=== PATIENT | female | born 1985 | race Caucasian/White ===

== ENCOUNTER 2021-04-04 17:07 | Emergency (ER) | payer OTHER, SELFPAY ==
--- NOTE | 2021-04-04 | ECG_ITS ---
Test Reason : CP Blood Pressure : / mmHG Vent. Rate : 079 BPM Atrial Rate : 079 BPM P-R Int : 138 ms QRS Dur : 076 ms QT Int : 398 ms P-R-T Axes : 072 061 049 degrees QTc Int : 456 ms Normal sinus rhythm RSR' or QR pattern in V1 suggests right ventricular conduction delay Otherwise normal ECG No previous ECGs available Referred By: Generic ED Physician Electronically Signed By:DARIN FERNANDEZ MD
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
[2021-04-04 17:28] VITALS: BP 122/87; PULSE 81; RESP 18; TEMP 37; O2SAT 99; BMI 23.1
[2021-04-04] MEDS: Ondansetron ODT 4 MG TAB.RAPDIS TRANSLINGU (17:37)
[2021-04-04 20:00] VITALS: BP 121/72; PULSE 76; RESP 18; TEMP 37.2; O2SAT 100
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
--- NOTE | 2021-04-04 21:17 | PC.NURSE ---
pt to radiology
[2021-04-04 21:56] VITALS: BP 132/74; PULSE 83; RESP 18; TEMP 37.1; O2SAT 100
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
[2021-04-04] MEDS: oxyCODONE HCl Immed Release 5 MG TABLET 10 MG PO (22:17)
--- NOTE | 2021-04-04 22:18 | PC.NURSE ---
pt medicated for pain per order
== END 2021-04-04 22:22 | disposition home or self-care (01) ==
PROVIDERS: Emergency Provider Internal Medicine
DX: Z04.1 Encounter for examination and observation following transport accident (principal)
CPT/HCPCS: 70450; 71046; 93005; 99284; 99285

== ENCOUNTER 2021-09-04 05:17 | Emergency (ER) | payer OTHER, SELFPAY ==
[2021-09-04 05:27] VITALS: BP 133/76; PULSE 103; RESP 16; TEMP 36.8; O2SAT 99; BMI 23.1
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
[2021-09-04] MEDS: Diphth,Pertus(ACell),Tet Adult 0.5 ML SYRINGE IM (05:40)
[2021-09-04] MEDS: Bacitracin Oint 0.9 GM PACKET 1 APPL TOPICAL (05:41)
[2021-09-04] MEDS: Ibuprofen 600 MG TABLET PO (05:41)
== END 2021-09-04 06:04 | disposition home or self-care (01) ==
PROVIDERS: Emergency Provider Emergency Medicine
DX: S61.411A Laceration without foreign body of right hand, initial encounter (principal); T23.162A Burn of first degree of back of left hand, initial encounter; T31.0 Burns involving less than 10% of body surface; X12.XXXA Contact with other hot fluids, initial encounter; Y93.89 Activity, other specified; Y92.030 Kitchen in apartment as the place of occurrence of the external cause; Y99.9 Unspecified external cause status
CPT/HCPCS: 90471; 90715; 99283; 99284

== ENCOUNTER 2022-04-04 17:09 | Emergency (ER) | payer OTHER, SELFPAY ==
--- NOTE | ~2022-04-04 | CT_ITS ---
EXAMINATION: CT ABDOMEN AND PELVIS WITH CONTRAST CLINICAL INFORMATION: Abdominal pain COMPARISON: None TECHNIQUE: Multidetector volumetric images were obtained from the superior aspect of the liver through the pubic symphysis following administration 85 mL of Omnipaque 350 intravenous contrast. Sagittal and coronal reformatted images were obtained on the technologist's workstation. Oral contrast: No This CT examination was performed using dose optimization techniques as appropriate, variously including the following: *Automated exposure control *Adjustment of mA and/or kV according to patient size (this includes techniques or standardized protocols for targeted exams where dose is matched to indication/reason for exam; i.e. extremities or head) *Use of iterative reconstruction technique DLP: 438 mGy-cm FINDINGS: LUNG BASES: The visualized lung bases are unremarkable. LIVER, GALLBLADDER, AND BILIARY TREE: The liver is normal in size, shape, and attenuation. No focal hepatic lesion or biliary ductal dilatation is present. The gallbladder is unremarkable with no evidence of radiopaque gallstones, gallbladder wall thickening, or obvious pericholecystic inflammatory changes. PANCREAS: Unremarkable. SPLEEN: Unremarkable. ADRENAL GLANDS: Unremarkable. KIDNEYS AND URETERS: The kidneys are normal in size, shape, and attenuation. No hydronephrosis, hydroureter, or calculi seen. No perinephric stranding. BLADDER: Unremarkable. GASTROINTESTINAL TRACT: No evidence of bowel obstruction or significant wall thickening. Moderate stool throughout the colon. The appendix is unremarkable. No free fluid or free air is seen. ABDOMINAL WALL: No significant hernia is appreciated. LYMPH NODES: Normal. VASCULAR: Unremarkable. PELVIC VISCERA: Unremarkable. OSSEOUS STRUCTURES: Unremarkable. CT/CT abdomen pelvis w IV con IMPRESSION: No acute findings identified in the abdomen/pelvis.
[2022-04-04 18:05] VITALS: BP 136/72; PULSE 73; RESP 20; TEMP 37.1; O2SAT 100; BMI 26.2
[2022-04-04 18:26] LABS: MANUAL DIFF FLAG NO
[2022-04-04 18:28] LABS: Basophils Absolute Auto 0.1 X10*3/uL (0.0-0.2); Basophils Percent Auto 0.5 % (0-2); Eosinophils Absolute Auto 0.2 X10*3/uL (0.0-0.4); Eosinophils Percent Auto 2.4 % (0-4); Hematocrit 33.6 % (37.0-47.0); Hemoglobin 11.5 g/dl (12.0-16.0); Imm Gran Abs Auto 0.03 X10*3/uL (0.00-0.03); Imm Gran Pct Auto 0.3 % (0.0-0.4); Lymphocytes Absolute Auto 2.5 X10*3/uL (1.2-4.9); Lymphocytes Percent Auto 26.6 % (20-40); Mean Corpuscular HGB Conc 34.2 g/dl (31.0-35.0); Mean Corpuscular Hemoglobin 33.5 pg (27.0-33.0); Mean Platelet Volume 9.5 fL (9.4-12.3); Monocytes Absolute Auto 0.6 X10*3/uL (0.1-1.2); Monocytes Percent Auto 6.6 % (2-11); Neutrophils Absolute Auto 6.1 x10*3/uL (2.0-8.3); Neutrophils Percent Auto 63.6 % (45-73); Platelet Count 201 X10*3/uL (160-400); Red Blood Count 3.43 X10*6/uL (4.20-5.50); Red Cell Distribution Width 12.8 % (11.0-16.0); White Blood Count 9.6 X10*3/uL (4.8-10.8)
[2022-04-04 18:30] LABS: Appearance Urine Clear; Color Urine Yellow; Glucose Urine UA Negative (Negative); Leukocyte Esterase Urine Negative (Negative); Nitrite Urine Negative (Negative); PH 6.5 (5.0-9.0); Urine Blood Negative (Negative); Urine Ketones Negative (Negative); Urine Protein Negative (Neg-Trace)
[2022-04-04 18:39] LABS: Urine Pregnancy NEGATIVE (NEGATIVE)
[2022-04-04 18:40] LABS: UPreg QC Valid YES
[2022-04-04 18:43] LABS: Anion Gap 16 (12-20); Blood Urea Nitrogen 14 mg/dL (9-16); Calcium 9.5 mg/dL (8.4-10.2); Carbon Dioxide 23 mmol/L (22-29); Chloride 102 mmol/L (96-108); Creatinine Clr Calc Pharmacy 92.1; Estimated Glomerular Filt Rate > 60; Glucose Random 74 mg/dL (60-115); Potassium 3.8 mmol/L (3.3-5.1); Sodium 137 mmol/L (135-145)
[2022-04-04 23:37] VITALS: BP 148/89; PULSE 73; RESP 16; TEMP 36.4; O2SAT 100
--- OUTSIDE RECORDS SUMMARY | 2022-04-05 00:52 | XMS_ITS | Continuity of Care Document ---
:1985 Author Organization [facility] Address [address] [place] [address]- Care Team Providers Name Role Phone Omkar Estrada DO Primary Care Physician [place] [facility] [place] 03[place]/[address] [address] [facility] Discharge Disposition: A-D/C Walkout Attending Physician: Not on Staff, Attending MD Admitting Physician: Not on Staff, Admitting MD Referring Physician: Not on Staff, Referring MD Allergies, Adverse Reactions, Alerts Substance Reaction Severity Status NKA Active Immunizations Given and Recorded Vaccine Date Status Refusal Reason pneumococcal 23-valent vaccine 05/07/14 Given Medications ferrous sulfate 325 mg oral enteric coated tablet 325 mg, 1, tablet, By Mouth, Daily, # 30 tablet, Refills 2, Tot. Refills 2, Maintenance, 07/22/17 3:57:57, Print Requisition Start Date: 07/22/17 Status: Orderedibuprofen 600 mg oral tablet 1 tablet = 600 mg, By Mouth, 4 times a day, PRN as needed for pain, # 20 tablet, 0 Refills, Maintenance, 07/19/15 19:07:53, Tablet Start Date: 07/19/15 Stop Date: 07/24/15 Status: OrderedPrenatal Multivitamin Tablet 0 Refills, Maintenance, 10/14/17 16:46:24 EDT Start Date: 10/14/17 Status: OrderedVitamin B6 Daily, 0 Refills, Maintenance, 10/14/17 16:46:31 EDT Start Date: 10/14/17 Status: Ordered Problem List Condition Effective Dates Status Health Status Informant Chlamydia(Confirmed) Active Vital Signs Most recent to oldest [Reference Range]: 1 2 Oxygen Saturation [94-100 %] 100 % 100 % (03/16/20 10:05 PM) (03/16/20 10:01 PM) Pulse Rate [55-90 bpm] 73 bpm 80 bpm (03/16/20 10:05 PM) (03/16/20 10:01 PM) Blood Pressure [90-138/55-84 mm Hg] 125/68 mm Hg (03/16/20 10:05 PM) Respiratory Rate [16-30 br/min] 18 br/min (03/16/20 10:05 PM) Temperature [96.8-100.4 DegF] 98.6 DegF (03/16/20 10:05 PM) Temperature Route Oral (03/16/20 10:05 PM) Social History Social History Type Response Smoking Status Never smoker; Tobacco user i n household: No entered on: 05/08/14 Sex
--- OUTSIDE RECORDS SUMMARY | 2022-04-05 00:52 | XMS_ITS | Continuity of Care Document ---
:1985 Author Organization [facility] ic Address [address] [place] [id number]- Care Team Providers Name Role Phone Omkar Estrada DO Primary Care Physician [place] [facility] [place]/01/[place] - 08/28/[address] [address]- [facility] Attending Physician: Not on Staff, Attending MD Referring Physician: Ct CERVANTES, Renee Allergies, Adverse Reactions, Alerts Substance Reaction Severity [...] Dates Status Health Status Informant Chlamydia(Confirmed) Active Social History Social History Type Response Smoking Status Never smoker; Tobacco user i n household: No entered on: 05/08/14 Sex
--- OUTSIDE RECORDS SUMMARY | 2022-04-05 00:52 | XMS_ITS | Continuity of Care Document ---
:1985 Author Organization [facility] Address [address] [place] [address]- Care Team Providers Name Role Phone Omkar Estrada DO Primary Care Physician Encounter [facility] Date(s): 06/27/19 - 08/01/[address] [address]- [facility] [phone] Attending Physician: Rock Ammon Deutsch DO Admitting Physician: Rock Ammon Deutsch DO Referring Physician: Gemma Brown Referring Physician: Rock Ammon Deutsch DO Allergies, Adverse Reactions, Alerts Substance Reaction Severity [...]
--- OUTSIDE RECORDS SUMMARY | 2022-04-05 00:52 | XMS_ITS | Continuity of Care Document ---
:1985 Author Organization [facility] ic Address [address] [place] [id number]- Care Team Providers Name Role Phone Omkar Estrada DO Primary Care Physician Encounter [facility] [place] Date(s): 07/29/19 - 08/08/[address] [address]- [facility] Attending Physician: Kevan Lora Admitting Physician: Kevan Lora Referring Physician: AdmtrKevan Allergies, Adverse Reactions, Alerts Substance Reaction Severity [...]
--- NOTE | 2022-04-05 01:02 | ED_ITS ---
HPI - Abdominal Pain General Chief Complaint: Abdominal Pain Stated Complaint: Abdominal pain Time Seen by Provider: 04/05/22 00:36 History of Present Illness HPI narrative: Patient is a 36-year-old female presents today with having lower abdominal pain. Patient unsure of her last menstrual period. Had a test that was a pea. Patient denies any change in diet. There is no change in appetite. There is slight nausea. There is no abdominal surgeries. No change in bowel m ovement. No abnormal vaginal discharge. No coughing or congestion or upper respiratory symptoms. Patient is from home. No history of pain related to food. She has been 4 times with 3 babies. One miscarriage. Related Data Previous Rx's Medication Instructions Recorded cyclobenzaprine 10 mg tablet 10 mg PO Q8H #20 tabs 04/04/21 ibuprofen 600 mg tablet 600 mg PO Q6H PRN pain #20 tabs 04/04/21 bacitracin 500 unit/gram topical 1 appl topical TID #20 ea 09/04/21 packet ibuprofen 600 mg tablet 600 mg PO Q6H PRN pain #14 tabs 09/04/21 Allergies Allergy/AdvReac Type Severity Reaction Status Date / Time No Known Allergies Allergy Verified 04/04/21 17:28 [No Known Allergies*] Review of Systems Review of Systems Positive abdominal pain Yes all other systems are reviewed and are negative PMFSH Past Medical History Attestation statement: The following information was validated with the patient. Social History Social History Alcohol intake: current Alcohol intake frequency: holidays/special occasions only Patient Tobacco Use Status: Former Tobacco user Advance Directives: No Physical Exam ED Vital Signs: Vital Signs - 24 hr 04/04/22 18:05 04/04/22 23:37 04/05/22 02:09 Temperature 98.8 F 97.5 F Pulse Rate 73 73 62 Respiratory Rate 20 16 18 Blood Pressure 136/72 148/89 H 127/71 Pulse Oximetry 100 100 97 Oxygen Delivery Method Room Air Room Air Room Air BMI result Body Mass Index 26.2 Appearance: Alert. Oriented X3. No acute distress. Eyes: Pupils equal, round and reactive to light. ENT: Pharynx normal. Neck: Normal inspection. Neck supple. No lymph nodes noted. No crepitus CVS: Normal heart rate and rhythm. Pulses normal. Normal S1 and S2 Respiratory: No respiratory distress. Breath sounds normal. No Wheezing. No rales Abdomen: Soft and nontender. No rigidity. No distention. good BS x4 Skin: Skin warm and dry. Normal skin color. Normal skin turgor. Extremities: No lower extremity edema. Neurovascular intact to all extremities. No Lacerations. No Rash Neuro: Oriented X 3. No motor deficit. No sensory deficit. Moving all extermities. No slurred speech MDM - Abdominal Pain MDM Narrative Medical decision making narrative: CT scan of the abdomen pelvis all negative. No evidence for appendicitis. test is negative. No evidence for ectopic. Electrolytes are unremarkable. White count is normal. Urine showed no signs of infection. No vaginal discharge. Will discharge patient home Motrin for pain follow up on an outpatient basis. In stable condition. Medical Records Attestation: I reviewed the patient's medical records. Lab Data Result diagrams: 04/04/22 18:20 04/04/22 18:20 Labs: Lab Results 04/04/22 04/04/22 04/04/22 Range/Units 18:20 18:20 18:20 WBC 9.6 (4.8-10.8) X10*3/uL RBC 3.43 L (4.20-5.50) X10*6/uL Hgb 11.5 L (12.0-16.0) g/dl Hct 33.6 L (37.0-47.0) % MCV 98.0 (80.0-98.0) fL MCH 33.5 H (27.0-33.0) pg MCHC 34.2 (31.0-35.0) g/dl RDW 12.8 (11.0-16.0) % Plt Count 201 (160-400) X10*3/uL MPV 9.5 (9.4-12.3) fL Immature Gran % (Auto) 0.3 (0.0-0.4) % Neut % (Auto) 63.6 (45-73) % Lymph % (Auto) 26.6 (20-40) % [place] % (Auto) 6.6 (2-11) % Eos % (Auto) 2.4 (0-4) % Baso % (Auto) 0.5 (0-2) % Lymph # (Auto) 2.5 (1.2-4.9) X10*3/uL [place] # (Auto) 0.6 (0.1-1.2) X10*3/uL Eos # (Auto) 0.2 (0.0-0.4) X10*3/uL Baso # (Auto) 0.1 (0.0-0.2) X10*3/uL Abs Immat Gran (auto) 0.03 (0.00-0.03) X10*3/uL Absolute Neuts (auto) 6.1 (2.0-8.3) x10*3/uL Absolute Nucleated RBC 0.000 (0.0-0.012) X10*3/uL Nucleated RBC % (auto) 0.0 (0.0-0.2) /100WBC Sodium 137 (135-145) mmol/L Potassium 3.8 (3.3-5.1) mmol/L Chloride 102 (96-108) mmol/L Carbon Dioxide 23 (22-29) mmol/L Anion Gap 16 (12-20) BUN 14 (9-16) mg/dL Creatinine 0.80 (0.5-1.4) mg/dL Estim Creat Clear Calc 92.1 Estimated GFR > 60 Random Glucose 74 (60-115) mg/dL Calcium 9.5 (8.4-10.2) mg/dL Urine Color Yellow Urine Appearance Clear Urine pH 6.5 (5.0-9.0) Ur Specific [place] 1.020 (1.005-1.025) Urine Protein Negative (Neg-Trace) mg/dL Urine Glucose (UA) Negative (Negative) mg/dL Urine Ketones Negative (Negative) mg/dL Urine Blood Negative (Negative) Urine Nitrite Negative (Negative) Ur Leukocyte Esterase Negative (Negative) Urine Test (NEGATIVE) 04/04/22 Range/Units 18:20 WBC (4.8-10.8) X10*3/uL RBC (4.20-5.50) X10*6/uL Hgb (12.0-16.0) g/dl Hct (37.0-47.0) % MCV (80.0-98.0) fL MCH (27.0-33.0) pg MCHC (31.0-35.0) g/dl RDW (11.0-16.0) % Plt Count (160-400) X10*3/uL MPV (9.4-12.3) fL Immature Gran % (Auto) (0.0-0.4) % Neut % (Auto) (45-73) % Lymph % (Auto) (20-40) % [place] % (Auto) (2-11) % Eos % (Auto) (0-4) % Baso % (Auto) (0-2) % Lymph # (Auto) (1.2-4.9) X10*3/uL [place] # (Auto) (0.1-1.2) X10*3/uL Eos # (Auto) (0.0-0.4) X10*3/uL Baso # (Auto) (0.0-0.2) X10*3/uL Abs Immat Gran (auto) (0.00-0.03) X10*3/uL Absolute Neuts (auto) (2.0-8.3) x10*3/uL Absolute Nucleated RBC (0.0-0.012) X10*3/uL Nucleated RBC % (auto) (0.0-0.2) /100WBC Sodium (135-145) mmol/L Potassium (3.3-5.1) mmol/L Chloride (96-108) mmol/L Carbon Dioxide (22-29) mmol/L Anion Gap (12-20) BUN (9-16) mg/dL Creatinine (0.5-1.4) mg/dL Estim Creat Clear Calc Estimated GFR Random Glucose (60-115) mg/dL Calcium (8.4-10.2) mg/dL Urine Color Urine Appearance Urine pH (5.0-9.0) Ur Specific [place] (1.005-1.025) Urine Protein (Neg-Trace) mg/dL Urine Glucose (UA) (Negative) mg/dL Urine Ketones (Negative) mg/dL Urine Blood (Negative) Urine Nitrite (Negative) Ur Leukocyte Esterase (Negative) Urine Test NEGATIVE (NEGATIVE) Discharge Plan Discharge Clinical Impression: Abdominal pain Patient Disposition: Home, Self-Care Instructions: Abdominal Pain (ED) Additional Instructions: Follow-up with your doctor in 2 days. Worsened pain return to the emergency department. Prescriptions: No Action cyclobenzaprine 10 mg tablet 10 mg PO Q8H Qty: 20 0RF ibuprofen 600 mg tablet 600 mg PO Q6H PRN (Reason: pain) Qty: 20 0RF ibuprofen 600 mg tablet 600 mg PO Q6H PRN (Reason: pain) Qty: 14 0RF bacitracin 500 unit/gram packet 1 appl topical TID Qty: 20 0RF Referrals: Physician,Unknown J [Primary Care Provider] - (Follow-up with your doctor in 2 days. Worsened pain return.)
[2022-04-05] MEDS: iohexoL 350 MG/ML 100 ML INFUS..BTL IV (01:51)
[2022-04-05 02:09] VITALS: BP 127/71; PULSE 62; RESP 18; O2SAT 97
== END 2022-04-05 03:06 | disposition home or self-care (01) ==
PROVIDERS: Emergency Provider Emergency Medicine Emergency Medical Services
DX: R10.2 Pelvic and perineal pain (principal); Z79.899 Other long term (current) drug therapy
CPT/HCPCS: 36415; 74177; 80048; 81003; 81025; 85025; 99212; 99283; 99284; Q9967

== ENCOUNTER 2022-04-05 16:46 | Outpatient (REF) | payer OTHER, SELFPAY ==
[2022-04-05 17:45] LABS: HCG Quantitative < 2 mIU/mL
== END 2022-04-05 16:47 | disposition home or self-care (01) ==
LOC: HO.LAB 16:46
PROVIDERS: Visit Provider Advanced Practice Midwife
DX: Z32.02 Encounter for pregnancy test, result negative (principal); N64.4 Mastodynia
CPT/HCPCS: 36415; 84702

== ENCOUNTER 2022-06-22 20:31 | Emergency (ER) | payer OTHER, SELFPAY ==
--- NOTE | ~2022-06-22 | US_ITS ---
EXAMINATION: US OBSTETRICAL ULTRASOUND CLINICAL INFORMATION: Pelvic pain. COMPARISON: None. LMP: 05/07/2022. Gestational age by maternal dates is 6 weeks and 4 days. Estimated date of delivery by maternal dates is 02/11/2023. TECHNIQUE: Ultrasound of the maternal pelvis is performed using transabdominal and transvaginal transducers. Transvaginal imaging is performed due to inadequate visualization transabdominally. M-mode Doppler is also performed. FINDINGS: There is a single intrauterine gestational sac, without visible yolk sac, embryo/fetus, or cardiac activity. There is a subchorionic hemorrhage measuring 1.4 x 0.8 x 0.6 cm. Mean sac diameter: 0.76 cm (5 weeks and 3 days +/- 4 days). MATERNAL ADNEXA: The right maternal ovary measures 3.3 x 1.7 x 1.7 cm. The left maternal ovary measures 3.3 x 2.8 x 2.7 cm. The left ovary contains a 2.0 cm in maximal diameter physiologic, simple cyst. There is no significant maternal adnexal mass. No maternal pelvic ascites. US/US OB pelvic and transvaginal IMPRESSION: 1. Single intrauterine gestational sac, ultrasound gestational age of 5 weeks and 3 days +/- 4 days. Recommend short-term follow-up ultrasound for pole measurements and more accurate dating. 2. A small subchorionic hemorrhage is noted, as detailed. 3. No maternal adnexal mass or pelvic ascites.
[2022-06-22 20:40] VITALS: BP 128/65; PULSE 78; RESP 18; TEMP 36.6; O2SAT 100; BMI 26.6
--- NOTE | 2022-06-22 20:43 | ED.ABDPAIN ---
HPI - Abdominal Pain General Chief Complaint: Abdominal Pain <CHASITY Robb - Last Filed: 06/22/22 20:46> Stated Complaint: 6 weeks preg; abd pain <CHASITY Robb - Last Filed: 06/22/22 20:46> Time Seen by Provider: 06/22/22 21:55 <CHASITY Robb - Last Filed: 06/22/22 20:46> Source: patient, family and it risk and assurance senior manager <Valeriy Toussaint MD - Last Filed: 06/22/22 23:18> Mode of arrival: ambulatory <Valeriy Toussaint MD - Last Filed: 06/22/22 23:18> Limitations: no limitations <Valeriy Toussaint MD - Last Filed: 06/22/22 23:18> History of Present Illness HPI narrative: 36-year-old female currently LMP is 05/07 about 6 weeks by date, presented for evaluation of lower abdominal cramps for 1 day, declined any vaginal bleed or discharge, no nausea, no vomiting, no abdominal pain. No pelvic trauma. No history of STD or PID. <Valeriy Toussaint MD - Last Filed: 06/22/22 23:18> Related Data Home Medications: Home Medications Medication Instructions Recorded Confirmed [id number] 3-fat com #1 27 cap PO 04/05/22 04/05/22 mg-1 mg-300 mg capsule folic acid 800 mcg tablet 0.8 mg PO DAILY 04/05/22 04/05/22 <CHASITY Robb - Last Filed: 06/22/22 20:46> Allergies/Adverse Reactions: Allergies Allergy/AdvReac Type Severity Reaction Status Date / Time No Known Allergies Allergy Verified 06/22/22 20:45 [No Known Allergies*] <CHASITY Robb - Last Filed: 06/22/22 20:46> Review of Systems Review of Systems All other systems are reviewed and are negative Constitutional: Reports as per HPI and Reports no additional constitutional complaints Eyes: Reports as per HPI and Reports no additional eye complaints Reports system reviewed and no additional complaints, except as documented Cardiovascular: Reports as per HPI and Reports no additional cardiovascular complaints Respiratory: Reports as per HPI and Reports no additional respiratory complaints Gastrointestinal: Reports as per HPI and Reports no additional gastrointestinal complaints Genitourinary: Reports no additional female genitourinary complaints Musculoskeletal: Reports no additional musculoskeletal complaints Skin/Breast: Reports system reviewed and no additional complaints, except as docu Psychiatric: Reports no additional psychiatric complaints Endocrine: Reports no additional endocrine complaints Hematologic/Lymphatic: Reports no additional hematologic/lymphatic complaints Allergic/Immunologic: Reports no additional allergic/immunologic complaints Reports system reviewed and no additional complaints, except as documented and Reports Abnormal speech present <Valeriy Toussaint MD - Last Filed: 06/22/22 23:18> [facility] Social History Social History: Social History Alcohol intake: current Alcohol intake frequency: holidays/special occasions only Patient Tobacco Use Status: Former Tobacco user Advance Directives: No Advance Directives Information Provided: No <CHASITY Robb - Last Filed: 06/22/22 20:46> Physical Exam ED Vital Signs: Vital Signs - 24 hr 06/22/22 20:40 Temperature 98 F Pulse Rate 78 Respiratory Rate 18 Blood Pressure 128/65 Pulse Oximetry 100 Oxygen Delivery Method Room Air BMI result Body Mass Index 26.6 <CHASITY Robb - Last Filed: 06/22/22 20:46> Vital Signs - 24 hr 06/22/22 20:40 Temperature 98 F Pulse Rate 78 Respiratory Rate 18 Blood Pressure 128/65 Pulse Oximetry 100 Oxygen Delivery Method Room Air BMI result Body Mass Index 26.6 Vital signs have been reviewed as appeared to be correct. Blood pressure normal. Heart rate normal. Respiration rate normal. Temperature normal. Oxygen saturation normal. <Valeriy Toussaint MD - Last Filed: 06/22/22 23:18> Appearance: Alert. Oriented X3. No acute distress. Head: Normal external exam. Normocephalic. Atraumatic. No Wheeler signs noted. No raccoon eyes noted Eyes: PERRLA. EOMI. Conjunctiva and sclera normal. Eyelids normal. ENT: TM's Normal. Pharynx normal. Uvula midline. Moist mucous membranes. No trismus noted. No drooling noted. No muffled voice noted. Neck: Normal inspection. Neck supple. FROM. No adenopathy. Thyroid Normal. No meningeal signs. No neck mass noted. CVS: Normal heart rate and rhythm. Heart sound normal. No murmurs noted. Pulses normal throughout. Respiratory: No respiratory distress. Painless inspiration. Breath sounds normal. No wheezes/rales/rhonchi noted. Chest nontender. No accessory muscle usage noted or decreased air movement noted. Abdomen: Soft and nontender. Bowel sounds normal in all 4 quadrants. No distention noted. No organomegaly noted. No visible injury noted. Pelvic exam: Deferred for the ultrasound. Back: No CVA tenderness. Full range of motion noted. Skin: Skin warm and dry. Normal skin color. Normal skin turgor. No rashes/lesions/lacerations noted. Extremities: No lower extremity edema. Extremities exhibit normal range of motion. Extremities nontender. Neuro: Oriented X 3. Cranial nerve exam: II-XII are grossly intact No motor deficit. No sensory deficit. Reflexes normal. <Valeriy Toussaint MD - Last Filed: 06/22/22 23:18> Course Course Course Narrative: 20:43 - RME - 36 y/o who is currently 6 weeks LMP 05/07 presenting with strong lower abdominal/pelvic cramping that comes and goes. The pain takes her breath away at times. Did not have this pain with her other pregnancies. No vaginal bleeding or discharge. No fevers, N/V/D. Will check HCG, labs, and pelvic/OB U/S. <CHASITY Robb - Last Filed: 06/22/22 20:46> Reevaluation(s) Reevaluation #1: 36-year-old female 5 weeks and 3 days with pelvic cramps with unremarkable ultrasound/labs patient is O-positive blood type, currently no vaginal bleeding, patient was instructed to rest for the next 3 days and avoid any strenuous activity and avoid sexual intercourse and make an appointment with her desizing machine back tender for follow-up. <Valeriy Toussaint MD - Last Filed: 06/22/22 23:18> Time: 23:16 <Valeriy Toussaint MD - Last Filed: 06/22/22 23:18> Medical Decision Making Differential Diagnosis Differential Diagnoses: The differential diagnosis associated with the presentation includes (Early complication ectopic , threatened , abdominal cause for pain.) <Valeriy Toussaint MD - Last Filed: 06/22/22 23:18> Lab Data [facility] Lab Attestation statement: I reviewed the patient's lab results. <Valeriy Toussaint MD - Last Filed: 06/22/22 23:18> Result Diagrams: : 06/22/22 20:53 06/22/22 20:53 <CHASITY Robb - Last Filed: 06/22/22 20:46> Labs: Lab Results 06/22/22 06/22/22 06/22/22 Range/Units 20:53 20:53 20:53 WBC 8.2 (4.8-10.8) X10*3/uL RBC 3.23 L (4.20-5.50) X10*6/uL Hgb 10.5 L (12.0-16.0) g/dl Hct 31.3 L (37.0-47.0) % MCV 96.9 (80.0-98.0) fL MCH 32.5 (27.0-33.0) pg MCHC 33.5 (31.0-35.0) g/dl RDW 11.9 (11.0-16.0) % Plt Count 215 (160-400) X10*3/uL MPV 9.5 (9.4-12.3) fL Immature Gran % (Auto) 0.2 (0.0-0.4) % Neut % (Auto) 69.3 (45-73) % Lymph % (Auto) 21.5 (20-40) % [place] % (Auto) 7.7 (2-11) % Eos % (Auto) 1.1 (0-4) % Baso % (Auto) 0.2 (0-2) % Lymph # (Auto) 1.8 (1.2-4.9) X10*3/uL [place] # (Auto) 0.6 (0.1-1.2) X10*3/uL Eos # (Auto) 0.1 (0.0-0.4) X10*3/uL Baso # (Auto) 0.0 (0.0-0.2) X10*3/uL Abs Immat Gran (auto) 0.02 (0.00-0.03) X10*3/uL Absolute Neuts (auto) 5.7 (2.0-8.3) x10*3/uL Absolute Nucleated RBC 0.000 (0.0-0.012) X10*3/uL Nucleated RBC % (auto) 0.0 (0.0-0.2) /100WBC Sodium 140 (135-145) mmol/L Potassium 3.9 (3.3-5.1) mmol/L Chloride 109 H (96-108) mmol/L Carbon Dioxide 24 (22-29) mmol/L Anion Gap 11 L (12-20) BUN 11 (9-16) mg/dL Creatinine 0.87 (0.5-1.4) mg/dL Estim Creat Clear Calc 85.2 Estimated GFR > 60 Random Glucose 102 (60-115) mg/dL Calcium 9.4 (8.4-10.2) mg/dL Magnesium 1.9 (1.6-2.6) mg/dL Total Bilirubin 0.3 (0.0-1.0) mg/dL Direct Bilirubin < 0.2 (0.0-0.5) mg/dL AST 15 (5-31) U/L ALT 12 (0-31) U/L Alkaline Phosphatase 48 (39-117) U/L Total Protein 7.5 (6.5-8.0) g/dL Albumin 4.6 (3.5-5.0) g/dL Beta HCG, Quant 7563 mIU/mL Blood Type O Positive <CHASITY Robb - Last Filed: 06/22/22 20:46> Lab Results 06/22/22 06/22/22 06/22/22 Range/Units 20:53 20:53 20:53 WBC 8.2 (4.8-10.8) X10*3/uL RBC 3.23 L (4.20-5.50) X10*6/uL Hgb 10.5 L (12.0-16.0) g/dl Hct 31.3 L (37.0-47.0) % MCV 96.9 (80.0-98.0) fL MCH 32.5 (27.0-33.0) pg MCHC 33.5 (31.0-35.0) g/dl RDW 11.9 (11.0-16.0) % Plt Count 215 (160-400) X10*3/uL MPV 9.5 (9.4-12.3) fL Immature Gran % (Auto) 0.2 (0.0-0.4) % Neut % (Auto) 69.3 (45-73) % Lymph % (Auto) 21.5 (20-40) % [place] % (Auto) 7.7 (2-11) % Eos % (Auto) 1.1 (0-4) % Baso % (Auto) 0.2 (0-2) % Lymph # (Auto) 1.8 (1.2-4.9) X10*3/uL [place] # (Auto) 0.6 (0.1-1.2) X10*3/uL Eos # (Auto) 0.1 (0.0-0.4) X10*3/uL Baso # (Auto) 0.0 (0.0-0.2) X10*3/uL Abs Immat Gran (auto) 0.02 (0.00-0.03) X10*3/uL Absolute Neuts (auto) 5.7 (2.0-8.3) x10*3/uL Absolute Nucleated RBC 0.000 (0.0-0.012) X10*3/uL Nucleated RBC % (auto) 0.0 (0.0-0.2) /100WBC Sodium 140 (135-145) mmol/L Potassium 3.9 (3.3-5.1) mmol/L Chloride 109 H (96-108) mmol/L Carbon Dioxide 24 (22-29) mmol/L Anion Gap 11 L (12-20) BUN 11 (9-16) mg/dL Creatinine 0.87 (0.5-1.4) mg/dL Estim Creat Clear Calc 85.2 Estimated GFR > 60 Random Glucose 102 (60-115) mg/dL Calcium 9.4 (8.4-10.2) mg/dL Magnesium 1.9 (1.6-2.6) mg/dL Total Bilirubin 0.3 (0.0-1.0) mg/dL Direct Bilirubin < 0.2 (0.0-0.5) mg/dL AST 15 (5-31) U/L ALT 12 (0-31) U/L Alkaline Phosphatase 48 (39-117) U/L Total Protein 7.5 (6.5-8.0) g/dL Albumin 4.6 (3.5-5.0) g/dL Beta HCG, Quant 7563 mIU/mL Blood Type O Positive <Valeriy Toussaint MD - Last Filed: 06/22/22 23:18> Independent Interpretation I performed an independent interpretation of an: Ultrasound (Pelvic ultrasound limited Ob: No acute pathology.) <Valeriy Toussaint MD - Last Filed: 06/22/22 23:18> Radiology Impression Discussion of test interpretation with radiology: I have reviewed the radiologist's reading. <Valeriy Toussaint MD - Last Filed: 06/22/22 23:18> Discharge Plan Discharge Clinical Impression: , threatened <CHASITY Robb - Last Filed: 06/22/22 20:46> Patient Disposition: Home, Self-Care <CHASITY Robb - Last Filed: 06/22/22 20:46> Instructions: Threatened Miscarriage (ED) <CHASITY Robb - Last Filed: 06/22/22 20:46> Additional Instructions: Follow-up with your OBGYN for care. <CHASITY Robb - Last Filed: 06/22/22 20:46> Prescriptions: No Action folic acid 800 mcg tablet 0.8 mg PO DAILY CYT-[id number]-PG-omega 3-fat com #1 27-1-300 mg capsule PO <CHASITY Robb - Last Filed: 06/22/22 20:46> Referrals: Physician,Unknown J [Primary Care Provider] - <CHASITY Robb - Last Filed: 06/22/22 20:46>
[2022-06-22 20:58] LABS: MANUAL DIFF FLAG NO
[2022-06-22 21:03] LABS: Basophils Percent Auto 0.2 % (0-2); Eosinophils Absolute Auto 0.1 X10*3/uL (0.0-0.4); Eosinophils Percent Auto 1.1 % (0-4); Hematocrit 31.3 % (37.0-47.0); Hemoglobin 10.5 g/dl (12.0-16.0); Imm Gran Abs Auto 0.02 X10*3/uL (0.00-0.03); Imm Gran Pct Auto 0.2 % (0.0-0.4); Lymphocytes Absolute Auto 1.8 X10*3/uL (1.2-4.9); Lymphocytes Percent Auto 21.5 % (20-40); Mean Corpuscular HGB Conc 33.5 g/dl (31.0-35.0); Mean Corpuscular Hemoglobin 32.5 pg (27.0-33.0); Mean Corpuscular Volume 96.9 fL (80.0-98.0); Mean Platelet Volume 9.5 fL (9.4-12.3); Monocytes Absolute Auto 0.6 X10*3/uL (0.1-1.2); Monocytes Percent Auto 7.7 % (2-11); Neutrophils Absolute Auto 5.7 x10*3/uL (2.0-8.3); Neutrophils Percent Auto 69.3 % (45-73); Platelet Count 215 X10*3/uL (160-400); Red Blood Count 3.23 X10*6/uL (4.20-5.50); Red Cell Distribution Width 11.9 % (11.0-16.0); White Blood Count 8.2 X10*3/uL (4.8-10.8)
[2022-06-22 21:16] LABS: Alanine Aminotransferase 12 U/L (0-31); Albumin Level 4.6 g/dL (3.5-5.0); Alkaline Phosphatase 48 U/L (39-117); Anion Gap 11 (12-20); Aspartate Amino Transferase 15 U/L (5-31); Bilirubin Direct < 0.2 mg/dL (0.0-0.5); Bilirubin Total 0.3 mg/dL (0.0-1.0); Blood Urea Nitrogen 11 mg/dL (9-16); Calcium 9.4 mg/dL (8.4-10.2); Carbon Dioxide 24 mmol/L (22-29); Chloride 109 mmol/L (96-108); Creatinine Clr Calc Pharmacy 85.2; Estimated Glomerular Filt Rate > 60; Glucose Random 102 mg/dL (60-115); Magnesium 1.9 mg/dL (1.6-2.6); Potassium 3.9 mmol/L (3.3-5.1); Sodium 140 mmol/L (135-145); Total Protein 7.5 g/dL (6.5-8.0)
[2022-06-22 21:22] LABS: HCG Quantitative 7563 mIU/mL
== END 2022-06-22 23:31 | disposition home or self-care (01) ==
PROVIDERS: Physician Assistant; Emergency Provider Emergency Medicine
DX: O20.0 Threatened abortion (principal); Z3A.01 Less than 8 weeks gestation of pregnancy; Z79.899 Other long term (current) drug therapy
CPT/HCPCS: 36415; 76801; 76817; 80048; 80076; 83735; 84702; 85025; 86900; 86901; 99282; 99284

== ENCOUNTER 2022-07-02 14:56 | Emergency (ER) | payer OTHER, SELFPAY ==
--- NOTE | ~2022-07-02 | US_ITS ---
EXAMINATION: US OBSTETRICAL ULTRASOUND CLINICAL INFORMATION: Vaginal bleeding/fragment COMPARISON: None. LMP: 05/07/2022 Gestational age by maternal dates is 8 weeks 0 days. Estimated date of delivery by maternal dates is 02/11/2023. TECHNIQUE: Routine grayscale imaging of pelvis is performed. FINDINGS: There is a single intrauterine gestational sac with visible yolk sac, embryo/fetus, and cardiac activity. The gestational sac appears slightly larger with average ultrasound sac measurement of 2.67 cm corresponding to 7 weeks 6 days gestational age. There is no significant subchorionic hemorrhage or hematoma. HR: 114 beats per minute. CRL (crown rump length): 0.45 cm (6 6 and 2 +/- 4 days). LEONEL (estimated date of delivery): 02/23/2023 +/- 4 days. MATERNAL ADNEXA: The right maternal ovary measures 1.7 x 0.6 x 1.7 cm. The right ovary appears unremarkable. The left maternal ovary measures 3.4 x 2.5 x 2.7 cm. There is anechoic cyst measuring 1.6 x 1.8 x 1.9 cm. There is no significant maternal adnexal mass. No maternal pelvic ascites. US/US OB <= 14 weeks fetus IMPRESSION: 1. Single live intrauterine gestation with ultrasound gestational age of 6 weeks 2 days +/- 4 days. 2. Estimated date of delivery is 02/23/2023 +/- 4 days. 3. No maternal adnexal mass or pelvic ascites.. 4. Slightly prominent gestational sac with an average sac measurements correspond to 7 weeks 6 days. Consider follow-up ultrasound in 6 weeks to 3 months.
[2022-07-02 15:10] VITALS: BP 114/62; PULSE 71; RESP 18; TEMP 36.1; O2SAT 100; BMI 26.6
--- NOTE | 2022-07-02 15:11 | ED_ITS ---
HPI - General Adult General Chief complaint: Vaginal Bleeding <CHASITY Cornejo - Last Filed: 07/02/22 15:13> Stated complaint: 2 mos preg vaginal bleeding and vomiting <CHASITY Cornejo - Last Filed: 07/02/22 15:13> Time Seen by Provider: 07/02/22 16:56 <CHASITY Cornejo - Last Filed: 07/02/22 15:13> Source: patient, family and educational sign language interpreter <Valeriy Toussaint MD - Last Filed: 07/02/22 17:21> Mode of arrival: ambulatory <Valeriy Toussaint MD - Last Filed: 07/02/22 17:21> Limitations: no limitations <Valeriy Toussaint MD - Last Filed: 07/02/22 17:21> History of Present Illness HPI narrative: 36-year-old female about 6 weeks presented with nausea and vomiting unable to tolerateintake patient's symptoms started a day ago, patient also noted that she is thin having vaginal streaks of blood now there is no bleeding, no sick contacts, no recent travel, patient has no abdominal pain today, no diarrhea. Patient also been having frequency urinary the mild dysuria but no fever or chills. <Valeriy Toussaint MD - Last Filed: 07/02/22 17:21> Related Data Home medications: Home Medications Medication Instructions Recorded Confirmed [id number] 3-fat com #1 27 cap PO 04/05/22 04/05/22 mg-1 mg-300 mg capsule folic acid 800 mcg tablet 0.8 mg PO DAILY 04/05/22 04/05/22 Previous Rx's Medication Instructions Recorded cefuroxime axetil 500 mg tablet 500 mg PO BID #14 tabs 07/02/22 <CHASITY Cornejo - Last Filed: 07/02/22 15:13> Allergies/adverse reactions: Allergies Allergy/AdvReac Type Severity Reaction Status Date / Time No Known Allergies Allergy Verified 06/22/22 20:45 [No Known Allergies*] <CHASITY Cornejo - Last Filed: 07/02/22 15:13> Review of Systems Review of Systems: All other systems are reviewed and are negative Constitutional: Reports as per HPI and Reports no additional constitutional complaints Eyes: Reports as per HPI and Reports no additional eye complaints Reports system reviewed and no additional complaints, except as documented Cardiovascular: Reports as per HPI and Reports no additional cardiovascular complaints Respiratory: Reports as per HPI and Reports no additional respiratory complaints Gastrointestinal: Reports as per HPI and Reports no additional gastrointestinal complaints Genitourinary: Reports no additional female genitourinary complaints Musculoskeletal: Reports no additional musculoskeletal complaints Skin/Breast: Reports system reviewed and no additional complaints, except as doc u Psychiatric: Reports no additional psychiatric complaints Endocrine: Reports no additional endocrine complaints Hematologic/Lymphatic: Reports no additional hematologic/lymphatic complaints Allergic/Immunologic: Reports no additional allergic/immunologic complaints Reports system reviewed and no additional complaints, except as documented and Reports Abnormal speech present <Valeriy Toussaint MD - Last Filed: 07/02/22 17:21> [facility] Social History Social History: Social History Alcohol intake: current Alcohol intake frequency: holidays/special occasions only Patient Tobacco Use Status: Former Tobacco user Advance Directives: No Advance Directives Information Provided: No <CHASITY oCrnejo - Last Filed: 07/02/22 15:13> Physical Exam ED Vital Signs: Vital Signs - 24 hr 07/02/22 15:10 Temperature 96.9 F Pulse Rate 71 Respiratory Rate 18 Blood Pressure 114/62 Pulse Oximetry 100 Oxygen Delivery Method Room Air BMI result Body Mass Index 26.6 <CHASITY Cornejo - Last Filed: 07/02/22 15:13> Vital Signs - 24 hr 07/02/22 15:10 Temperature 96.9 F Pulse Rate 71 Respiratory Rate 18 Blood Pressure 114/62 Pulse Oximetry 100 Oxygen Delivery Method Room Air BMI result Body Mass Index 26.6 Vital signs have been reviewed as appeared to be correct. Blood pressure normal. Heart rate normal. Respiration rate normal. Temperature normal. Oxygen saturation normal. <Valeriy Toussaint MD - Last Filed: 07/02/22 17:21> Appearance: Alert. Oriented X3. No acute distress. Head: Normal external exam. Normocephalic. Atraumatic. No Wheeler signs noted. No raccoon eyes noted Eyes: PERRLA. EOMI. Conjunctiva and sclera normal. Eyelids normal. ENT: TM's Normal. Pharynx normal. Uvula midline. Moist mucous membranes. No trismus noted. No drooling noted. No muffled voice noted. Neck: Normal inspection. Neck supple. FROM. No adenopathy. Thyroid Normal. No meningeal signs. No neck mass noted. CVS: Normal heart rate and rhythm. Heart sound normal. No murmurs noted. Pulses normal throughout. Respiratory: No respiratory distress. Painless inspiration. Breath sounds normal. No wheezes/rales/rhonchi noted. Chest nontender. No accessory muscle usage noted or decreased air movement noted. Abdomen: Soft and nontender. Bowel sounds normal in all 4 quadrants. No distention noted. No organomegaly noted. No visible injury noted. Pelvic exam: No active bleeding, no blood in the vault, os is closed, no tender adnexa. Back: No CVA tenderness. Full range of motion noted. Skin: Skin warm and dry. Normal skin color. Normal skin turgor. No rashes/lesions/lacerations noted. Extremities: No lower extremity edema. Extremities exhibit normal range of motion. Extremities nontender. Neuro: Oriented X 3. Cranial nerve exam: II-XII are grossly intact No motor deficit. No sensory deficit. Reflexes normal. <Valeriy Toussaint MD - Last Filed: 07/02/22 17:21> Course Course Course Narrative: RME performed by Belinda Osullivan PA-C. Patient is a 36 year old female presenting to the emergency department with vaginal bleeding. Patient states that she is . Patient states that this is her 5th and she has had 1 previous miscarriage. US and labs ordered. Patient placed back in waiting room pending results and room availability. <CHASITY Cornejo - Last Filed: 07/02/22 15:13> Reevaluation(s) Reevaluation #1: 36-year-old female 6 weeks came in with hyperemesis gravidarum the patient although his experience in her previous pregnancies with this pain is worse, patient also with UTI no pyelonephritis, no abdominal pain fever, chills. Patient was encouraged to drink plenty of fluids and started on cefuroxime for antibiotic <Valeriy Toussaint MD - Last Filed: 07/02/22 17:21> Time: 19:15 <Valeriy Toussaint MD - Last Filed: 07/02/22 17:21> Medical Decision Making Differential Diagnosis Differential Diagnoses: The differential diagnosis associated with the presentation includes (Ectopic , threatened , hyperemesis gravidarum, UTI, pyelonephritis.) <Valeriy Toussaint MD - Last Filed: 07/02/22 17:21> Lab Data MDM Lab Attestation statement: I reviewed the patient's lab results. <Valeriy Toussaint MD - Last Filed: 07/02/22 17:21> Result Diagrams: 07/02/22 16:10 07/02/22 16:10 <CHASITY Cornejo - Last Filed: 07/02/22 15:13> Labs: Lab Results 07/02/22 07/02/22 07/02/22 Range/Units 16:10 16:10 16:10 WBC 8.4 (4.8-10.8) X10*3/uL RBC 3.63 L (4.20-5.50) X10*6/uL Hgb 11.6 L (12.0-16.0) g/dl Hct 34.5 L (37.0-47.0) % MCV 95.0 (80.0-98.0) fL MCH 32.0 (27.0-33.0) pg MCHC 33.6 (31.0-35.0) g/dl RDW 11.9 (11.0-16.0) % Plt Count 179 (160-400) X10*3/uL MPV 9.6 (9.4-12.3) fL Immature Gran % (Auto) 0.4 (0.0-0.4) % Neut % (Auto) 78.7 H (45-73) % Lymph % (Auto) 13.4 L (20-40) % [place] % (Auto) 6.0 (2-11) % Eos % (Auto) 1.3 (0-4) % Baso % (Auto) 0.2 (0-2) % Lymph # (Auto) 1.1 L (1.2-4.9) X10*3/uL [place] # (Auto) 0.5 (0.1-1.2) X10*3/uL Eos # (Auto) 0.1 (0.0-0.4) X10*3/uL Baso # (Auto) 0.0 (0.0-0.2) X10*3/uL Abs Immat Gran (auto) 0.03 (0.00-0.03) X10*3/uL Absolute Neuts (auto) 6.6 (2.0-8.3) x10*3/uL Absolute Nucleated RBC 0.000 (0.0-0.012) X10*3/uL Nucleated RBC % (auto) 0.0 (0.0-0.2) /100WBC PT (10.0-13.1) SEC INR (0.9-1.1) APTT (26.0-36.4) SEC Sodium 136 (135-145) mmol/L Potassium 3.9 (3.3-5.1) mmol/L Chloride 108 (96-108) mmol/L Carbon Dioxide 20 L (22-29) mmol/L Anion Gap 12 (12-20) BUN 9 (9-16) mg/dL Creatinine 0.76 (0.5-1.4) mg/dL Estim Creat Clear Calc 97.7 Estimated GFR > 60 Random Glucose 105 (60-115) mg/dL Calcium 9.1 (8.4-10.2) mg/dL Magnesium 1.8 (1.6-2.6) mg/dL Total Bilirubin 0.6 (0.0-1.0) mg/dL AST 15 (5-31) U/L ALT 14 (0-31) U/L Alkaline Phosphatase 54 (39-117) U/L Total Protein 7.6 (6.5-8.0) g/dL Albumin 4.6 (3.5-5.0) g/dL Beta HCG, Quant 26285 mIU/mL Urine Color Yellow Urine Appearance Cloudy Urine pH 5.5 (5.0-9.0) Ur Specific [place] 1.025 (1.005-1.025) Urine Protein Trace (Neg-Trace) mg/dL Urine Glucose (UA) Negative (Negative) mg/dL Urine Ketones Trace (Negative) mg/dL Urine Blood Negative (Negative) Urine Nitrite Negative (Negative) Ur Leukocyte Esterase Moderate (2+) H (Negative) Urine RBC 0-2 (0-2) /HPF Urine WBC 21-50 H (0-5) /HPF Ur Squamous Epith Cells >20 (0-2) /HPF Urine Bacteria 4+ (None Seen) Hyaline Casts 3-5 (0-2) /LPF 07/02/22 Range/Units 16:11 WBC (4.8-10.8) X10*3/uL RBC (4.20-5.50) X10*6/uL Hgb (12.0-16.0) g/dl Hct (37.0-47.0) % MCV (80.0-98.0) fL MCH (27.0-33.0) pg MCHC (31.0-35.0) g/dl RDW (11.0-16.0) % Plt Count (160-400) X10*3/uL MPV (9.4-12.3) fL Immature Gran % (Auto) (0.0-0.4) % Neut % (Auto) (45-73) % Lymph % (Auto) (20-40) % [place] % (Auto) (2-11) % Eos % (Auto) (0-4) % Baso % (Auto) (0-2) % Lymph # (Auto) (1.2-4.9) X10*3/uL [place] # (Auto) (0.1-1.2) X10*3/uL Eos # (Auto) (0.0-0.4) X10*3/uL Baso # (Auto) (0.0-0.2) X10*3/uL Abs Immat Gran (auto) (0.00-0.03) X10*3/uL Absolute Neuts (auto) (2.0-8.3) x10*3/uL Absolute Nucleated RBC (0.0-0.012) X10*3/uL Nucleated RBC % (auto) (0.0-0.2) /100WBC PT 12.4 (10.0-13.1) SEC INR 1.1 (0.9-1.1) APTT 29.8 (26.0-36.4) SEC Sodium (135-145) mmol/L Potassium (3.3-5.1) mmol/L Chloride (96-108) mmol/L Carbon Dioxide (22-29) mmol/L Anion Gap (12-20) BUN (9-16) mg/dL Creatinine (0.5-1.4) mg/dL Estim Creat Clear Calc Estimated GFR Random Glucose (60-115) mg/dL Calcium (8.4-10.2) mg/dL Magnesium (1.6-2.6) mg/dL Total Bilirubin (0.0-1.0) mg/dL AST (5-31) U/L ALT (0-31) U/L Alkaline Phosphatase (39-117) U/L Total Protein (6.5-8.0) g/dL Albumin (3.5-5.0) g/dL Beta HCG, Quant mIU/mL Urine Color Urine Appearance Urine pH (5.0-9.0) Ur Specific [place] (1.005-1.025) Urine Protein (Neg-Trace) mg/dL Urine Glucose (UA) (Negative) mg/dL Urine Ketones (Negative) mg/dL Urine Blood (Negative) Urine Nitrite (Negative) Ur Leukocyte Esterase (Negative) Urine RBC (0-2) /HPF Urine WBC (0-5) /HPF Ur Squamous Epith Cells (0-2) /HPF Urine Bacteria (None Seen) Hyaline Casts (0-2) /LPF <CHASITY Cornejo - Last Filed: 07/02/22 15:13> Lab Results 07/02/22 07/02/22 07/02/22 Range/Units 16:10 16:10 16:10 WBC 8.4 (4.8-10.8) X10*3/uL RBC 3.63 L (4.20-5.50) X10*6/uL Hgb 11.6 L (12.0-16.0) g/dl Hct 34.5 L (37.0-47.0) % MCV 95.0 (80.0-98.0) fL MCH 32.0 (27.0-33.0) pg MCHC 33.6 (31.0-35.0) g/dl RDW 11.9 (11.0-16.0) % Plt Count 179 (160-400) X10*3/uL MPV 9.6 (9.4-12.3) fL Immature Gran % (Auto) 0.4 (0.0-0.4) % Neut % (Auto) 78.7 H (45-73) % Lymph % (Auto) 13.4 L (20-40) % [place] % (Auto) 6.0 (2-11) % Eos % (Auto) 1.3 (0-4) % Baso % (Auto) 0.2 (0-2) % Lymph # (Auto) 1.1 L (1.2-4.9) X10*3/uL [place] # (Auto) 0.5 (0.1-1.2) X10*3/uL Eos # (Auto) 0.1 (0.0-0.4) X10*3/uL Baso # (Auto) 0.0 (0.0-0.2) X10*3/uL Abs Immat Gran (auto) 0.03 (0.00-0.03) X10*3/uL Absolute Neuts (auto) 6.6 (2.0-8.3) x10*3/uL Absolute Nucleated RBC 0.000 (0.0-0.012) X10*3/uL Nucleated RBC % (auto) 0.0 (0.0-0.2) /100WBC PT (10.0-13.1) SEC INR (0.9-1.1) APTT (26.0-36.4) SEC Sodium 136 (135-145) mmol/L Potassium 3.9 (3.3-5.1) mmol/L Chloride 108 (96-108) mmol/L Carbon Dioxide 20 L (22-29) mmol/L Anion Gap 12 (12-20) BUN 9 (9-16) mg/dL Creatinine 0.76 (0.5-1.4) mg/dL Estim Creat Clear Calc 97.7 Estimated GFR > 60 Random Glucose 105 (60-115) mg/dL Calcium 9.1 (8.4-10.2) mg/dL Magnesium 1.8 (1.6-2.6) mg/dL Total Bilirubin 0.6 (0.0-1.0) mg/dL AST 15 (5-31) U/L ALT 14 (0-31) U/L Alkaline Phosphatase 54 (39-117) U/L Total Protein 7.6 (6.5-8.0) g/dL Albumin 4.6 (3.5-5.0) g/dL Beta HCG, Quant 89889 mIU/mL Urine Color Yellow Urine Appearance Cloudy Urine pH 5.5 (5.0-9.0) Ur Specific [place] 1.025 (1.005-1.025) Urine Protein Trace (Neg-Trace) mg/dL Urine Glucose (UA) Negative (Negative) mg/dL Urine Ketones Trace (Negative) mg/dL Urine Blood Negative (Negative) Urine Nitrite Negative (Negative) Ur Leukocyte Esterase Moderate (2+) H (Negative) Urine RBC 0-2 (0-2) /HPF Urine WBC 21-50 H (0-5) /HPF Ur Squamous Epith Cells >20 (0-2) /HPF Urine Bacteria 4+ (None Seen) Hyaline Casts 3-5 (0-2) /LPF 07/02/22 Range/Units 16:11 WBC (4.8-10.8) X10*3/uL RBC (4.20-5.50) X10*6/uL Hgb (12.0-16.0) g/dl Hct (37.0-47.0) % MCV (80.0-98.0) fL MCH (27.0-33.0) pg MCHC (31.0-35.0) g/dl RDW (11.0-16.0) % Plt Count (160-400) X10*3/uL MPV (9.4-12.3) fL Immature Gran % (Auto) (0.0-0.4) % Neut % (Auto) (45-73) % Lymph % (Auto) (20-40) % [place] % (Auto) (2-11) % Eos % (Auto) (0-4) % Baso % (Auto) (0-2) % Lymph # (Auto) (1.2-4.9) X10*3/uL [place] # (Auto) (0.1-1.2) X10*3/uL Eos # (Auto) (0.0-0.4) X10*3/uL Baso # (Auto) (0.0-0.2) X10*3/uL Abs Immat Gran (auto) (0.00-0.03) X10*3/uL Absolute Neuts (auto) (2.0-8.3) x10*3/uL Absolute Nucleated RBC (0.0-0.012) X10*3/uL Nucleated RBC % (auto) (0.0-0.2) /100WBC PT 12.4 (10.0-13.1) SEC INR 1.1 (0.9-1.1) APTT 29.8 (26.0-36.4) SEC Sodium (135-145) mmol/L Potassium (3.3-5.1) mmol/L Chloride (96-108) mmol/L Carbon Dioxide (22-29) mmol/L Anion Gap (12-20) BUN (9-16) mg/dL Creatinine (0.5-1.4) mg/dL Estim Creat Clear Calc Estimated GFR Random Glucose (60-115) mg/dL Calcium (8.4-10.2) mg/dL Magnesium (1.6-2.6) mg/dL Total Bilirubin (0.0-1.0) mg/dL AST (5-31) U/L ALT (0-31) U/L Alkaline Phosphatase (39-117) U/L Total Protein (6.5-8.0) g/dL Albumin (3.5-5.0) g/dL Beta HCG, Quant mIU/mL Urine Color Urine Appearance Urine pH (5.0-9.0) Ur Specific [place] (1.005-1.025) Urine Protein (Neg-Trace) mg/dL Urine Glucose (UA) (Negative) mg/dL Urine Ketones (Negative) mg/dL Urine Blood (Negative) Urine Nitrite (Negative) Ur Leukocyte Esterase (Negative) Urine RBC (0-2) /HPF Urine WBC (0-5) /HPF Ur Squamous Epith Cells (0-2) /HPF Urine Bacteria (None Seen) Hyaline Casts (0-2) /LPF <Valeriy Toussaint MD - Last Filed: 07/02/22 17:21> Independent Interpretation I performed an independent interpretation of an: Ultrasound (1. Single live intrauterine gestation with ultrasound gestational age of 6 weeks 2 days +/- 4 days. 2. Estimated date of delivery is 02/23/2023 +/- 4 days. 3. No maternal adnexal mass or pelvic ascites.. 4. Slightly prominent gestational sac with an average sac measurements correspond to 7 weeks ) <Valeriy Toussaint MD - Last Filed: 07/02/22 17:21> Radiology Impression Discussion of test interpretation with radiology: I have reviewed the radiologist's reading. (1. Single live intrauterine gestation with ultrasound gestational age of 6 weeks 2 days +/- 4 days. 2. Estimated date of delivery is 02/23/2023 +/- 4 days. 3. No maternal adnexal mass or pelvic ascites.. 4. Slightly prominent gestational sac with an average sac measurements correspond to 7 weeks ) <Valeriy Toussaint MD - Last Filed: 07/02/22 17:21> Discharge Plan Discharge Clinical Impression: Threatened , Hyperemesis gravidarum, Urinary tract infection during <CHASITY Cornejo - Last Filed: 07/02/22 15:13> Patient Disposition: Home, Self-Care <CHASITY Cornejo - Last Filed: 07/02/22 15:13> Instructions: Urinary Tract Infection in (ED) <CHASITY Cornejo - Last Filed: 07/02/22 15:13> Prescriptions: New cefuroxime axetil 500 mg tablet 500 mg PO BID Qty: 14 0RF No Action folic acid 800 mcg tablet 0.8 mg PO DAILY [id number] 3-fat com #1 27-1-300 mg capsule PO <CHASITY Cornejo - Last Filed: 07/02/22 15:13>
[2022-07-02 16:16] LABS: MANUAL DIFF FLAG NO
[2022-07-02 16:17] LABS: Basophils Percent Auto 0.2 % (0-2); Eosinophils Absolute Auto 0.1 X10*3/uL (0.0-0.4); Eosinophils Percent Auto 1.3 % (0-4); Hematocrit 34.5 % (37.0-47.0); Hemoglobin 11.6 g/dl (12.0-16.0); Imm Gran Abs Auto 0.03 X10*3/uL (0.00-0.03); Imm Gran Pct Auto 0.4 % (0.0-0.4); Lymphocytes Absolute Auto 1.1 X10*3/uL (1.2-4.9); Lymphocytes Percent Auto 13.4 % (20-40); Mean Corpuscular HGB Conc 33.6 g/dl (31.0-35.0); Mean Platelet Volume 9.6 fL (9.4-12.3); Monocytes Absolute Auto 0.5 X10*3/uL (0.1-1.2); Neutrophils Absolute Auto 6.6 x10*3/uL (2.0-8.3); Neutrophils Percent Auto 78.7 % (45-73); Platelet Count 179 X10*3/uL (160-400); Red Blood Count 3.63 X10*6/uL (4.20-5.50); Red Cell Distribution Width 11.9 % (11.0-16.0); White Blood Count 8.4 X10*3/uL (4.8-10.8)
[2022-07-02 16:24] LABS: Appearance Urine Cloudy; Color Urine Yellow; Glucose Urine UA Negative (Negative); Leukocyte Esterase Urine Moderate (2+) (Negative); Nitrite Urine Negative (Negative); PH 5.5 (5.0-9.0); Specific Gravity - Urine 1.025 (1.005-1.025); UMIC TRIGGER UACC YES; Urine Blood Negative (Negative); Urine Ketones Trace mg/dL (Negative); Urine Protein Trace mg/dL (Neg-Trace)
[2022-07-02 16:25] LABS: INTERNATIONAL NORM RATIO 1.1 (0.9-1.1); Prothrombin Time 12.4 SEC (10.0-13.1)
[2022-07-02 16:28] LABS: Partial Thromboplastin Time 29.8 SEC (26.0-36.4)
[2022-07-02 16:38] LABS: Alanine Aminotransferase 14 U/L (0-31); Albumin Level 4.6 g/dL (3.5-5.0); Alkaline Phosphatase 54 U/L (39-117); Anion Gap 12 (12-20); Aspartate Amino Transferase 15 U/L (5-31); Bilirubin Total 0.6 mg/dL (0.0-1.0); Blood Urea Nitrogen 9 mg/dL (9-16); Calcium 9.1 mg/dL (8.4-10.2); Carbon Dioxide 20 mmol/L (22-29); Chloride 108 mmol/L (96-108); Creatinine Clr Calc Pharmacy 97.7; Estimated Glomerular Filt Rate > 60; Glucose Random 105 mg/dL (60-115); Magnesium 1.8 mg/dL (1.6-2.6); Potassium 3.9 mmol/L (3.3-5.1); Sodium 136 mmol/L (135-145); Total Protein 7.6 g/dL (6.5-8.0)
[2022-07-02 16:40] LABS: HCG Quantitative 13954 mIU/mL
[2022-07-02 16:42] LABS: Bacteria Urine 4+ (None Seen); RBC Urine 0-2 /HPF (0-2); Squamous Epithelial Cell Urine >20 /HPF (0-2); UACC Culture Trigger YES; WBC Urine 21-50 /HPF (0-5)
[2022-07-02] MEDS: 0.9 % Sodium Chloride 1,000 ML 999 ML IV (17:46)
[2022-07-02] MEDS: ondansetron HCL 4 MG/2 ML VIAL IVPUSH (17:46)
== END 2022-07-02 19:59 | disposition home or self-care (01) ==
PROVIDERS: Physician Assistant Medical; Emergency Provider Emergency Medicine
DX: O20.0 Threatened abortion (principal); O21.0 Mild hyperemesis gravidarum; O23.41 Unspecified infection of urinary tract in pregnancy, first trimester; N39.0 Urinary tract infection, site not specified; B96.20 Unspecified Escherichia coli [E. coli] as the cause of diseases classified elsewhere; O09.521 Supervision of elderly multigravida, first trimester; Z3A.01 Less than 8 weeks gestation of pregnancy
CPT/HCPCS: 36415; 76801; 80053; 81001; 83735; 84702; 85025; 85610; 85730; 87086; 87088; 87186; 96374; 99284; J2405

== ENCOUNTER 2022-09-05 18:29 | Emergency (ER) | payer OTHER, SELFPAY ==
--- NOTE | ~2022-09-05 | US_ITS ---
EXAMINATION: US ABDOMEN LIMITED. ULTRASOUND OB LIMITED CLINICAL INFORMATION: Right upper quadrant pain. Pelvic pain. COMPARISON: None TECHNIQUE: Real-time imaging of the right upper quadrant abdominal viscera. FINDINGS: LIMITED ABDOMEN ULTRASOUND: PANCREAS: The head and body of the pancreas is homogeneous in echotexture. The tail is obscured narrowing gas. LIVER: Normal. The liver is normal in size. The liver contour is normal. Parenchymal echogenicity is normal. No focal hepatic lesion. There is no intrahepatic biliary duct dilatation seen. GALLBLADDER: There is a small echogenic nonmobile polyp measuring 0.4 x 0.3 x 0.3 cm. The gallbladder is physiologically distended without evidence of stones, sludge, wall thickening or pericholecystic fluid. COMMON BILE DUCT: Normal in caliber measuring 0.2 cm in diameter. RIGHT KIDNEY: Normal. No hydronephrosis. No renal calculi or focal parenchymal lesions. The kidney measures 10.8 cm in maximum dimension. FREE FLUID: None. OB ULTRASOUND: There is a single live intrauterine fetus with a heart rate of 1 39 bpm.. The placenta is anterior with 2 hypoechoic areas within likely placental lakes. The femoral length measures 1.9 cm corresponding to 15 weeks 5 days. The cervix is closed and measures 3.4 cm. Right ovary measures 1.5 x 1.1 x 1.1 cm and appears unremarkable. Left ovary measures 2.6 x 2.3 x 2.9 cm with a small cyst measuring 2.1 x 1.5 x 1.8 cm. There is no free fluid in the cul-de-sac. US/US abdomen limited IMPRESSION: 1. Small gallbladder polyp measuring 0.4 cm. No echogenic stones or wall thickening. 2. Visualized pancreas, liver, CBD and right kidney is unremarkable. 3. Single live intrauterine fetus with a heart rate of 139 bpm. 4. Simple cyst left ovary.
[2022-09-05 19:41] VITALS: BP 120/70; PULSE 92; RESP 16; TEMP 36.4; O2SAT 100; BMI 25.7
--- NOTE | 2022-09-05 19:41 | ED.PREGNANCY ---
HPI - General Chief complaint: Nausea/Vomiting/Diarrhea <CHASITY Kenyon - Last Filed: 09/05/22 19:47> Stated complaint: vomiting edc 02/14 <CHASITY Kenyon - Last Filed: 09/05/22 19:47> Time Seen by Provider: 09/05/22 22:31 <CHASITY Kenyon - Last Filed: 09/05/22 19:47> Source: patient <Jessica Fletcher MD - Last Filed: 09/05/22 23:54> Mode of arrival: ambulatory <Jessica Fletcher MD - Last Filed: 09/05/22 23:54> Limitations: no limitations <Jessica Fletcher MD - Last Filed: 09/05/22 23:54> History of Present Illness HPI Narrative: Patient is a A1 at 15 weeks and 5 days of gestational age. Patient comes to the emergency room complaining of epigastric burning sensation and vomiting and diarrhea. Of the symptoms started yesterday. Patient states that she has been unable to keep anything down. However, when I walk into the room, patient had just finished eating a [employer] meal, and so far she has not vomited. Patient denies vaginal bleeding, no abdominal pain, no cramping or contractions. Patient states that at home she tried taking a combination pill of pyridoxine and doxylamine without any relief. <Jessica Fletcher MD - Last Filed: 09/05/22 23:54> Related Data Home medications: Home Medications Medication Instructions Recorded Confirmed HSR-evsb-LT-omega 3-fat com #1 27 cap PO 04/05/22 04/05/22 mg-1 mg-300 mg capsule folic acid 800 mcg tablet 0.8 mg PO DAILY 04/05/22 04/05/22 Previous Rx's Medication Instructions Recorded cefuroxime axetil 500 mg tablet 500 mg PO BID #14 tabs 07/02/22 metoclopramide HCl 5 mg tablet 5 mg PO BID #10 tabs 09/05/22 <CHASITY Kenyon - Last Filed: 09/05/22 19:47> Allergies/Adverse reactions: Allergies Allergy/AdvReac Type Severity Reaction Status Date / Time No Known Allergies Allergy Verified 06/22/22 20:45 [No Known Allergies*] <CHASITY Kenyon - Last Filed: 09/05/22 19:47> Review of Systems Review of Systems: Constitutional : No Weight loss, No Fever, No Chills, No Night Sweats, No Fatigue, No Malaise ENT/Mouth : No Hearing loss, No Ear Pain, No Nasal Congestion, No Sinus Pain, No Hoarseness, No sore throat, No Rhinorrhea, No Swallowing Difficulty Eyes: No Eye Pain, No Swelling, No Redness, No Foreign Body, No Discharge, No Vision Changes Cardiovascular : No Chest Pain, No SOB, No Dyspnea on Exertion, No Orthopnea, No Edema, No Palpitations Respiratory : No Cough, No Sputum, No Wheezing, No Smoke Exposure, No Dyspnea Gastrointestinal : Complaining of nausea vomiting and diarrhea. No Constipation, No abdominal Pain, No Hematochezia, No Melena Genitourinary : no irregular bleeding, No Dysuria, No Urinary Frequency, No Hematuria, No Urinary Incontinence, No Urgency, No Flank Pain, No Urinary Flow Changes, No Hesitancy Musculoskeletal : No joint pain, No Myalgias, No Joint Swelling Skin : No Skin Lesions, No rash Neuro : No Weakness, No Numbness, No Paresthesias, No Loss of Consciousness, No Dizziness, No Headache Psych : No Anxiety/Panic, No Depression, No SI/HI/AH/VH, No Social Issues, Heme/Lymph: No Bruising, No Bleeding,No Lymphadenopathy Endocrine : No Polyuria, No Polydipsia, No Temperature Intolerance <Jessica Fletcher MD - Last Filed: 09/05/22 23:54> [facility] Social History Social History: Social History Alcohol intake: never Patient Tobacco Use Status: Former Tobacco user Advance Directives: No Advance Directives Information Provided: Yes <CHASITY Kenyon - Last Filed: 09/05/22 19:47> Physical Exam Vital Signs: Vital Signs: Last Vital Signs Temp 97.5 F 09/05/22 19:41 Pulse 92 09/05/22 19:41 Resp 16 09/05/22 19:41 BP 120/70 09/05/22 19:41 Pulse Ox 100 09/05/22 19:41 O2 Del Method 09/05/22 19:41 BMI result Body Mass Index 25.7 <CHASITY Kenyon - Last Filed: 09/05/22 19:47> Vital Signs: Last Vital Signs Temp 97.5 F 09/05/22 19:41 Pulse 92 09/05/22 19:41 Resp 16 09/05/22 19:41 BP 120/70 09/05/22 19:41 Pulse Ox 100 09/05/22 19:41 O2 Del Method 09/05/22 19:41 BMI result Body Mass Index 25.7 <Jessica Fletcher MD - Last Filed: 09/05/22 23:54> Const: Other: Appearance: Alert. Oriented X3. No acute distress. Well-appearing Eyes: Pupils equal, round and reactive to light. ENT: Pharynx normal. Neck: Normal inspection. Neck supple. No lymph nodes noted. No crepitus CVS: Normal heart rate and rhythm. Pulses normal. Normal S1 and S2 Respiratory: No respiratory distress. Breath sounds normal. No Wheezing. No rales Abdomen: Soft and nontender. No rigidity. No distention. Skin: Skin warm and dry. Normal skin color. Normal skin turgor. Extremities: No lower extremity edema. No Lacerations. No Rash Neuro: Oriented X 3. No motor deficit. No sensory deficit. Moving all extremities. No slurred speech. CN 2 through 12 grossly intact Psych: calm, cooperative, normal affect <Jessica Fletcher MD - Last Filed: 09/05/22 23:54> Course Course Course Narrative: GERMAINE-19:46pm 36yoF who is currently 4 months being followed by Raven fernández at [facility] who is [id number] presenting with complaints of nausea/vomiting/diarrhea with epigastric abdominal pain since last night worse today. Unable to keep any fluids down including water. Reports she has been taking the prescribed nausea medication although no symptomatic relief. Reports this was confirmed by urine and blood. She has not had an ultrasound. She denies any sick contacts, fevers, possible bad food exposure, recent travel, chest pain or shortness of breath, sore throat, cough, back pain, flank pain, dysuria, hematuria, abnormal vaginal bleeding, abnormal vaginal discharge, black or bloody stools or any other symptoms complaints or concerns at this time. Plan: Labs, COVID/RSV/flu swab, abdominal ultrasound and pelvic/transvaginal OB ultrasound. Patient will be sent back to the waiting room to be evaluated in the ED. <CHASITY Kenyon - Last Filed: 09/05/22 19:47> Medical Decision Making Medical Decision Making [facility] Narrative: -patient ate a large [employer] meal, so far tolerating p.o. well. -patient receiving IV fluids, metoclopramide IV. -ultrasound shows a single live intrauterine fetus with a heart rate of 139 beats per minute. Estimated gestational age of 15 weeks and 5 days -patient tolerated well p.o., -patient instructed to follow-up with her OBGYN. <Jessica Fletcher MD - Last Filed: 09/05/22 23:54> Differential Diagnosis Differential Diagnoses: The differential diagnosis associated with the presentation includes (Gastroenteritis, hyperemesis, food poisoning) <Jessica Fletcher MD - Last Filed: 09/05/22 23:54> Admission/Observation Consideration of admission/observation: Escalation of care including admission/observation considered <Jessica Fletcher MD - Last Filed: 09/05/22 23:54> Lab Data [facility] Lab Attestation statement: I reviewed the patient's lab results. <Jessica Fletcher MD - Last Filed: 09/05/22 23:54> Result Diagrams: 09/05/22 22:20 09/05/22 22:20 <CHASITY Kenyon - Last Filed: 09/05/22 19:47> Labs: Lab Results 09/05/22 09/05/22 09/05/22 Range/Units 22:20 22:20 22:20 WBC 7.7 (4.8-10.8) X10*3/uL RBC 3.54 L (4.20-5.50) X10*6/uL Hgb 11.5 L (12.0-16.0) g/dl Hct 33.2 L (37.0-47.0) % MCV 93.8 (80.0-98.0) fL MCH 32.5 (27.0-33.0) pg MCHC 34.6 (31.0-35.0) g/dl RDW 12.7 (11.0-16.0) % Plt Count 209 (160-400) X10*3/uL MPV 9.2 L (9.4-12.3) fL Immature Gran % (Auto) 0.3 (0.0-0.4) % Neut % (Auto) 76.0 H (45-73) % Lymph % (Auto) 16.1 L (20-40) % [place] % (Auto) 6.6 (2-11) % Eos % (Auto) 0.9 (0-4) % Baso % (Auto) 0.1 (0-2) % Lymph # (Auto) 1.2 (1.2-4.9) X10*3/uL [place] # (Auto) 0.5 (0.1-1.2) X10*3/uL Eos # (Auto) 0.1 (0.0-0.4) X10*3/uL Baso # (Auto) 0.0 (0.0-0.2) X10*3/uL Abs Immat Gran (auto) 0.02 (0.00-0.03) X10*3/uL Absolute Neuts (auto) 5.8 (2.0-8.3) x10*3/uL Absolute Nucleated RBC 0.000 (0.0-0.012) X10*3/uL Nucleated RBC % (auto) 0.0 (0.0-0.2) /100WBC Sodium 137 (135-145) mmol/L Potassium 3.2 L (3.3-5.1) mmol/L Chloride 105 (96-108) mmol/L Carbon Dioxide 22 (22-29) mmol/L Anion Gap 13 (12-20) BUN 9 (9-16) mg/dL Creatinine 0.65 (0.5-1.4) mg/dL Estim Creat Clear Calc 112.3 Estimated GFR > 60 Random Glucose 85 (60-115) mg/dL Calcium 8.9 (8.4-10.2) mg/dL Magnesium 2.0 (1.6-2.6) mg/dL Total Bilirubin 0.7 (0.0-1.0) mg/dL AST 21 (5-31) U/L ALT 19 (0-31) U/L Alkaline Phosphatase 50 (39-117) U/L Total Protein 7.7 (6.5-8.0) g/dL Albumin 4.4 (3.5-5.0) g/dL Lipase 26 (8-78) U/L Beta HCG, Quant 41700 mIU/mL Influenza Type A (PCR) (Negative) Influenza Type B (PCR) (Negative) RSV RNA Qual (PCR) (Negative) SARS-CoV-2 RNA (RT-PCR) (Negative) 09/05/22 Range/Units 22:20 WBC (4.8-10.8) X10*3/uL RBC (4.20-5.50) X10*6/uL Hgb (12.0-16.0) g/dl Hct (37.0-47.0) % MCV (80.0-98.0) fL MCH (27.0-33.0) pg MCHC (31.0-35.0) g/dl RDW (11.0-16.0) % Plt Count (160-400) X10*3/uL MPV (9.4-12.3) fL Immature Gran % (Auto) (0.0-0.4) % Neut % (Auto) (45-73) % Lymph % (Auto) (20-40) % [place] % (Auto) (2-11) % Eos % (Auto) (0-4) % Baso % (Auto) (0-2) % Lymph # (Auto) (1.2-4.9) X10*3/uL [place] # (Auto) (0.1-1.2) X10*3/uL Eos # (Auto) (0.0-0.4) X10*3/uL Baso # (Auto) (0.0-0.2) X10*3/uL Abs Immat Gran (auto) (0.00-0.03) X10*3/uL Absolute Neuts (auto) (2.0-8.3) x10*3/uL Absolute Nucleated RBC (0.0-0.012) X10*3/uL Nucleated RBC % (auto) (0.0-0.2) /100WBC Sodium (135-145) mmol/L Potassium (3.3-5.1) mmol/L Chloride (96-108) mmol/L Carbon Dioxide (22-29) mmol/L Anion Gap (12-20) BUN (9-16) mg/dL Creatinine (0.5-1.4) mg/dL Estim Creat Clear Calc Estimated GFR Random Glucose (60-115) mg/dL Calcium (8.4-10.2) mg/dL Magnesium (1.6-2.6) mg/dL Total Bilirubin (0.0-1.0) mg/dL AST (5-31) U/L ALT (0-31) U/L Alkaline Phosphatase (39-117) U/L Total Protein (6.5-8.0) g/dL Albumin (3.5-5.0) g/dL Lipase (8-78) U/L Beta HCG, Quant mIU/mL Influenza Type A (PCR) NEGATIVE (Negative) Influenza Type B (PCR) NEGATIVE (Negative) RSV RNA Qual (PCR) NEGATIVE (Negative) SARS-CoV-2 RNA (RT-PCR) NEGATIVE (Negative) <CHASITY Kenyon - Last Filed: 09/05/22 19:47> Lab Results 09/05/22 09/05/22 09/05/22 Range/Units 22:20 22:20 22:20 WBC 7.7 (4.8-10.8) X10*3/uL RBC 3.54 L (4.20-5.50) X10*6/uL Hgb 11.5 L (12.0-16.0) g/dl Hct 33.2 L (37.0-47.0) % MCV 93.8 (80.0-98.0) fL MCH 32.5 (27.0-33.0) pg MCHC 34.6 (31.0-35.0) g/dl RDW 12.7 (11.0-16.0) % Plt Count 209 (160-400) X10*3/uL MPV 9.2 L (9.4-12.3) fL Immature Gran % (Auto) 0.3 (0.0-0.4) % Neut % (Auto) 76.0 H (45-73) % Lymph % (Auto) 16.1 L (20-40) % [place] % (Auto) 6.6 (2-11) % Eos % (Auto) 0.9 (0-4) % Baso % (Auto) 0.1 (0-2) % Lymph # (Auto) 1.2 (1.2-4.9) X10*3/uL [place] # (Auto) 0.5 (0.1-1.2) X10*3/uL Eos # (Auto) 0.1 (0.0-0.4) X10*3/uL Baso # (Auto) 0.0 (0.0-0.2) X10*3/uL Abs Immat Gran (auto) 0.02 (0.00-0.03) X10*3/uL Absolute Neuts (auto) 5.8 (2.0-8.3) x10*3/uL Absolute Nucleated RBC 0.000 (0.0-0.012) X10*3/uL Nucleated RBC % (auto) 0.0 (0.0-0.2) /100WBC Sodium 137 (135-145) mmol/L Potassium 3.2 L (3.3-5.1) mmol/L Chloride 105 (96-108) mmol/L Carbon Dioxide 22 (22-29) mmol/L Anion Gap 13 (12-20) BUN 9 (9-16) mg/dL Creatinine 0.65 (0.5-1.4) mg/dL Estim Creat Clear Calc 112.3 Estimated GFR > 60 Random Glucose 85 (60-115) mg/dL Calcium 8.9 (8.4-10.2) mg/dL Magnesium 2.0 (1.6-2.6) mg/dL Total Bilirubin 0.7 (0.0-1.0) mg/dL AST 21 (5-31) U/L ALT 19 (0-31) U/L Alkaline Phosphatase 50 (39-117) U/L Total Protein 7.7 (6.5-8.0) g/dL Albumin 4.4 (3.5-5.0) g/dL Lipase 26 (8-78) U/L Beta HCG, Quant 29343 mIU/mL Influenza Type A (PCR) (Negative) Influenza Type B (PCR) (Negative) RSV RNA Qual (PCR) (Negative) SARS-CoV-2 RNA (RT-PCR) (Negative) 09/05/22 Range/Units 22:20 WBC (4.8-10.8) X10*3/uL RBC (4.20-5.50) X10*6/uL Hgb (12.0-16.0) g/dl Hct (37.0-47.0) % MCV (80.0-98.0) fL MCH (27.0-33.0) pg MCHC (31.0-35.0) g/dl RDW (11.0-16.0) % Plt Count (160-400) X10*3/uL MPV (9.4-12.3) fL Immature Gran % (Auto) (0.0-0.4) % Neut % (Auto) (45-73) % Lymph % (Auto) (20-40) % [place] % (Auto) (2-11) % Eos % (Auto) (0-4) % Baso % (Auto) (0-2) % Lymph # (Auto) (1.2-4.9) X10*3/uL [place] # (Auto) (0.1-1.2) X10*3/uL Eos # (Auto) (0.0-0.4) X10*3/uL Baso # (Auto) (0.0-0.2) X10*3/uL Abs Immat Gran (auto) (0.00-0.03) X10*3/uL Absolute Neuts (auto) (2.0-8.3) x10*3/uL Absolute Nucleated RBC (0.0-0.012) X10*3/uL Nucleated RBC % (auto) (0.0-0.2) /100WBC Sodium (135-145) mmol/L Potassium (3.3-5.1) mmol/L Chloride (96-108) mmol/L Carbon Dioxide (22-29) mmol/L Anion Gap (12-20) BUN (9-16) mg/dL Creatinine (0.5-1.4) mg/dL Estim Creat Clear Calc Estimated GFR Random Glucose (60-115) mg/dL Calcium (8.4-10.2) mg/dL Magnesium (1.6-2.6) mg/dL Total Bilirubin (0.0-1.0) mg/dL AST (5-31) U/L ALT (0-31) U/L Alkaline Phosphatase (39-117) U/L Total Protein (6.5-8.0) g/dL Albumin (3.5-5.0) g/dL Lipase (8-78) U/L Beta HCG, Quant mIU/mL Influenza Type A (PCR) NEGATIVE (Negative) Influenza Type B (PCR) NEGATIVE (Negative) RSV RNA Qual (PCR) NEGATIVE (Negative) SARS-CoV-2 RNA (RT-PCR) NEGATIVE (Negative) <Jessica Fletcher MD - Last Filed: 09/05/22 23:54> Discharge Plan Discharge Clinical Impression: Vomiting during <CHASITY Kenyon - Last Filed: 09/05/22 19:47> Patient Disposition: Home, Self-Care <CHASITY Kenyon - Last Filed: 09/05/22 19:47> Instructions: Hyperemesis Gravidarum (ED) <CHASITY Kenyon - Last Filed: 09/05/22 19:47> Additional Instructions: Please follow-up with your primary care physician tomorrow. If you have any worsening or new symptoms, please return to the emergency room or call 911 <CHASITY Kenyon - Last Filed: 09/05/22 19:47> Prescriptions: New metoclopramide HCl 5 mg tablet 5 mg PO BID Qty: 10 0RF No Action cefuroxime axetil 500 mg tablet 500 mg PO BID Qty: 14 0RF folic acid 800 mcg tablet 0.8 mg PO DAILY GSW-tajc-IZ-omega 3-fat com #1 27-1-300 mg capsule PO <CHASITY Kenyon - Last Filed: 09/05/22 19:47>
[2022-09-05 22:25] LABS: MANUAL DIFF FLAG NO
[2022-09-05 22:26] LABS: Basophils Percent Auto 0.1 % (0-2); Eosinophils Absolute Auto 0.1 X10*3/uL (0.0-0.4); Eosinophils Percent Auto 0.9 % (0-4); Hematocrit 33.2 % (37.0-47.0); Hemoglobin 11.5 g/dl (12.0-16.0); Imm Gran Abs Auto 0.02 X10*3/uL (0.00-0.03); Imm Gran Pct Auto 0.3 % (0.0-0.4); Lymphocytes Absolute Auto 1.2 X10*3/uL (1.2-4.9); Lymphocytes Percent Auto 16.1 % (20-40); Mean Corpuscular HGB Conc 34.6 g/dl (31.0-35.0); Mean Corpuscular Hemoglobin 32.5 pg (27.0-33.0); Mean Corpuscular Volume 93.8 fL (80.0-98.0); Mean Platelet Volume 9.2 fL (9.4-12.3); Monocytes Absolute Auto 0.5 X10*3/uL (0.1-1.2); Monocytes Percent Auto 6.6 % (2-11); Neutrophils Absolute Auto 5.8 x10*3/uL (2.0-8.3); Platelet Count 209 X10*3/uL (160-400); Red Blood Count 3.54 X10*6/uL (4.20-5.50); Red Cell Distribution Width 12.7 % (11.0-16.0); White Blood Count 7.7 X10*3/uL (4.8-10.8)
[2022-09-05 22:55] LABS: Alanine Aminotransferase 19 U/L (0-31); Albumin Level 4.4 g/dL (3.5-5.0); Alkaline Phosphatase 50 U/L (39-117); Anion Gap 13 (12-20); Aspartate Amino Transferase 21 U/L (5-31); Bilirubin Total 0.7 mg/dL (0.0-1.0); Blood Urea Nitrogen 9 mg/dL (9-16); Calcium 8.9 mg/dL (8.4-10.2); Carbon Dioxide 22 mmol/L (22-29); Chloride 105 mmol/L (96-108); Creatinine Clr Calc Pharmacy 112.3; Estimated Glomerular Filt Rate > 60; Glucose Random 85 mg/dL (60-115); Lipase 26 U/L (8-78); Potassium 3.2 mmol/L (3.3-5.1); Sodium 137 mmol/L (135-145); Total Protein 7.7 g/dL (6.5-8.0)
[2022-09-05 23:03] LABS: Influenza A PCR NEGATIVE (Negative); Influenza B PCR NEGATIVE (Negative); Resp Syncy Virus RNA Qual PCR NEGATIVE (Negative); SARS COV2 PCR INHOUSE NEGATIVE (Negative)
[2022-09-05 23:28] LABS: HCG Quantitative 34960 mIU/mL
--- NOTE | 2022-09-06 00:03 | MHC.EDTECH ---
PT/INR ordered at 1945 and never drawn. Lab no longer needed per Dr Fletcher.
[2022-09-06] MEDS: Metoclopramide HCl 10 MG/2 ML VIAL IVPUSH (00:09)
[2022-09-06] MEDS: Famotidine/PF 20 MG/2 ML VIAL IVPUSH (00:09)
[2022-09-06] MEDS: 0.9 % Sodium Chloride 1,000 ML 999 ML IVCONT (00:10)
[2022-09-06 01:14] VITALS: BP 118/69; PULSE 87; RESP 16; TEMP 36.7; O2SAT 100
--- NOTE | 2022-09-06 01:31 | PC.NURSE ---
Addendum entered by Ada Benavides 09/06/22 01:32: note for 09/05/222003 Original Note: pt c/o n/v, pt is , c/o abd pain pt eating [employer] advised to not eat until she has been evaluated no apparent distress daughter at bedside
--- NOTE | 2022-09-06 01:33 | PC.NURSE ---
Discharge instructions given/explained to pt, ambulates safely/ind, no apparent distress, IV cath intact upon removal
== END 2022-09-06 01:50 | disposition home or self-care (01) ==
PROVIDERS: Physician Assistant Medical; Emergency Provider Emergency Medicine
DX: O21.0 Mild hyperemesis gravidarum (principal); Z3A.15 15 weeks gestation of pregnancy; Z20.822 Contact with and (suspected) exposure to COVID-19; Z20.828 Contact with and (suspected) exposure to other viral communicable diseases; Z79.899 Other long term (current) drug therapy
CPT/HCPCS: 0241U; 36415; 76705; 76815; 80053; 83690; 83735; 84702; 85025; 96361; 96374; 96375; 99284; J2765

== ENCOUNTER 2022-10-31 00:25 | Emergency (ER) | payer OTHER, SELFPAY ==
[2022-10-31 00:30] VITALS: PULSE 95; RESP 16; TEMP 37; O2SAT 100; BMI 27.5
[2022-10-31 05:26] VITALS: BP 127/70; PULSE 82; RESP 17; TEMP 37.1; O2SAT 100
--- NOTE | 2022-10-31 06:30 | ED.DENTAL ---
HPI - Dental/Oral General Chief complaint: Nausea/Vomiting/Diarrhea Stated complaint: , vaginal pain Time Seen by Provider: 10/31/22 06:28 Source: patient and family Mode of arrival: ambulatory Limitations: no limitations History of Present Illness HPI Narrative: 37 yo female who is 6 months presents to the ER for evaluation of right sided dental pain associated with facial pain and swelling. She reports inability to eat since yesterday due to the pain. She took a dose of tylenol with minimal relief. She does not have a dentist. She states she feels the pain radiates from her upper dental area into her cheek and to the left ear. She is able to open and close her mouth normally but it hurts to chew. She denies fever or chills but has had some nausea. Complaint: tooth pain Location: Tooth # (13) Onset (ago): day(s) Duration: constant Severity: severe Severity scale (1-10): 10 Relieving factors: nothing Exacerbating factors: chewing, cold and heat Context: poor dental care Associated symptoms: gum swelling Treatment prior to arrival: none Related Data Home Medications Medication Instructions Recorded Confirmed QYO-pily-BC-omega 3-fat com #1 27 cap PO 04/05/22 04/05/22 mg-1 mg-300 mg capsule folic acid 800 mcg tablet 0.8 mg PO DAILY 04/05/22 04/05/22 Previous Rx's Medication Instructions Recorded cefuroxime axetil 500 mg tablet 500 mg PO BID #14 tabs 07/02/22 metoclopramide HCl 5 mg tablet 5 mg PO BID #10 tabs 09/05/22 amoxicillin 875 mg-potassium 1 tab PO BID #20 tabs 10/31/22 clavulanate 125 mg tablet chlorhexidine gluconate 0.12 % 15 ml buccal BID #118 mL 10/31/22 mouthwash (Peridex) Allergies Allergy/AdvReac Type Severity Reaction Status Date / Time No Known Allergies Allergy Verified 06/22/22 20:45 [No Known Allergies*] Review of Systems Review of Systems: Yes all other systems are reviewed and are negative PMFSH Social History Social History Alcohol intake: never Patient Tobacco Use Status: Former Tobacco user Advance Directives: No Advance Directives Information Provided: No Physical Exam Vital Signs: Vital Signs: Last Vital Signs Temp 98.7 F 10/31/22 05:26 Pulse 82 10/31/22 05:26 Resp 17 10/31/22 05:26 BP 127/70 10/31/22 05:26 Pulse Ox 100 10/31/22 05:26 O2 Del Method Room Air 10/31/22 05:26 BMI result Body Mass Index 27.5 Appearance: Alert. Oriented X3. No acute distress. HEENT: normal external inspection, face is symmetrical. Poor dentition, left upper dental infection with 1st molar broken with exposed dentin, associated gingival swelling and fluctuance with visible abscess. airway patent. no trismus. normal TMs bilaterally. CVS: Normal heart rate and rhythm. Pulses normal. Respiratory: No respiratory distress. Skin: Skin warm and dry. Normal skin color. Normal skin turgor. No rashes. Extremities: normal inspection x4, no joint swelling. Neuro: Oriented X 3. No motor deficit. No sensory deficit. Normal speech, handling secretions normally. Medical Decision Making Medical Decision Making MDM Narrative: 29-year-old female presents to the ER for evaluation of left upper dental pain and swelling for the last couple of days, inability to eat since yesterday due to pain. She has no trismus, appreciated facial swelling on examination. She does have a visible dental abscess to her 1st molar out on the left upper side, she is refusing to have incision and drainage here in the emergency department today. She states she will do it at home. The importance of this was reiterated however she continued to refuse. Will prescribe antibiotics, have her follow-up with dental as soon as possible. Tylenol for pain only given that she is 6 months . Stable for discharge home. Return precautions were discussed Differential Diagnosis Differential Diagnoses: The differential diagnosis associated with the presentation includes dental abscess, dental trauma, broken tooth. toothache Independent Historian Clinical information obtained from an independent historian. History obtained from or confirmed by: Friend External Record Review External record reviewed: Office record, Outpatient record and Prior outpatient labs Prescription Management I considered prescription management with: Pain Medication and Antibiotic Critical Care Time Critical Care Time Critical Care Time: No Discharge Plan Discharge Clinical Impression: Dental abscess Patient Disposition: Home, Self-Care Instructions: Dental Abscess (ED) Additional Instructions: Take the prescribed antibiotic as directed. Start them as soon as possible. Complete the entire course and do not take miss any doses. use a warm tea bag to the area several times per day. Also recommend jeiw-bes-qoyarcv Orajel to help numb the area. You can and try to express the infection at home, your refusing to have it done here in the emergency department. It is very important that you follow-up with a dentist as soon as possible. Continue to take Tylenol for pain. This is the only medication that is safe during [place] el antibi?awa recetado seg?n las indicaciones. Comience lo antes posible. Complete todo el curso y no pierda ninguna dosis. use inderjit bolsita de t? caliente en el ?nette varias veces al d?a. Tambi?n recomiende Orajel de venta lisa para ayudar a adormecer el ?nette. Puede e intenta expresar la infecci?n en resendez casa, neg?ndose a hacerlo aqu? en el departamento de emergencias. Es muy importante que albertina un seguimiento con un dentista lo antes posible. Contin?e tomando Tylenol para el dolor. Becky es el ?dexter medicamento que es seguro stephanie el embarazo. Prescriptions: New amoxicillin-pot clavulanate 875-125 mg tablet 1 tab PO BID Qty: 20 0RF chlorhexidine gluconate [Peridex] 0.12 % mouthwash 15 ml buccal BID Qty: 118 0RF No Action cefuroxime axetil 500 mg tablet 500 mg PO BID Qty: 14 0RF metoclopramide HCl 5 mg tablet 5 mg PO BID Qty: 10 0RF folic acid 800 mcg tablet 0.8 mg PO DAILY FES-vont-AA-omega 3-fat com #1 27-1-300 mg capsule PO Stand Alone Forms: Work/School Release Interventions: ED Discharge Assessment Last Done: 10/31/22 06:53 Discharge Date/Time: 10/31/22 06:55 Print Language: [place]
== END 2022-10-31 06:55 | disposition home or self-care (01) ==
PROVIDERS: Emergency Provider Emergency Medicine Emergency Medical Services
DX: K02.9 Dental caries, unspecified (principal); R10.2 Pelvic and perineal pain
CPT/HCPCS: 99282; 99283

== ENCOUNTER 2024-01-10 09:01 | Observation (INO) | payer MEDICAID, SELFPAY ==
[2024-01-10] VITALS (8 sets, daily range): BP systolic 111–126; BP diastolic 58–83; PULSE 69–104; RESP 16–18; TEMP 35.8–36.8; O2SAT 94–100; BMI 30.3
--- NOTE | ~2024-01-10 | CT_ITS ---
EXAMINATION: CT ABDOMEN AND PELVIS WITHOUT CONTRAST CLINICAL INFORMATION: Right flank pain. COMPARISON: Right upper quadrant ultrasound 11/05/2022 CT abdomen/pelvis 04/05/2022 TECHNIQUE: Multidetector volumetric imaging was performed from the superior aspect of the liver through the pubic symphysis. Sagittal and coronal reformatted images were obtained on the technologist's workstation. This CT examination was performed using dose optimization techniques as appropriate, variously including the following: *Automated exposure control *Adjustment of mA and/or kV according to patient size (this includes techniques or standardized protocols for targeted exams where dose is matched to indication/reason for exam; i.e. extremities or head) *Use of iterative reconstruction technique DLP: 551 mGy-cm FINDINGS: LUNG BASES: The visualized lung bases are unremarkable. LIVER, GALLBLADDER, AND BILIARY TREE: The noncontrast liver is normal in size and contour. No biliary ductal dilatation is present. The gallbladder is unremarkable with no evidence of radiopaque gallstones, gallbladder wall thickening, or obvious pericholecystic inflammatory changes. PANCREAS: Unremarkable. SPLEEN: Unremarkable. ADRENAL GLANDS: Unremarkable. KIDNEYS AND URETERS: Kidneys are symmetric in size. No renal calculus. No hydronephrosis. Mild right perinephric stranding. BLADDER: No bladder calculus. GASTROINTESTINAL TRACT: Small and large bowel loops are of normal caliber. No small bowel obstruction. The appendix is within normal limits. ABDOMINAL WALL: Small fat-containing umbilical hernia. LYMPH NODES: No bulky lymphadenopathy. VASCULAR: Normal caliber abdominal aorta. PELVIC VISCERA: Unremarkable. OSSEOUS STRUCTURES: No destructive bone lesions. CT/CT abdomen pelvis wo IV con IMPRESSION: Mild right perinephric stranding. No right hydronephrosis. Consider possibility of recently passed calculus versus pyelonephritis.
[2024-01-10 09:30] LABS: MANUAL DIFF FLAG NO
[2024-01-10 09:31] LABS: Basophils Percent Auto 0.3 % (0-2); Eosinophils Percent Auto 0.2 % (0-4); Hemoglobin 12.2 g/dl (12.0-16.0); Imm Gran Abs Auto 0.04 X10*3/uL (0.00-0.03); Imm Gran Pct Auto 0.3 % (0.0-0.4); Lymphocytes Absolute Auto 1.9 X10*3/uL (1.2-4.9); Lymphocytes Percent Auto 13.7 % (20-40); Mean Corpuscular HGB Conc 34.9 g/dl (31.0-35.0); Mean Corpuscular Hemoglobin 33.2 pg (27.0-33.0); Mean Corpuscular Volume 95.4 fL (80.0-98.0); Mean Platelet Volume 9.2 fL (9.4-12.3); Monocytes Absolute Auto 1.3 X10*3/uL (0.1-1.2); Monocytes Percent Auto 9.1 % (2-11); Neutrophils Absolute Auto 10.8 x10*3/uL (2.0-8.3); Neutrophils Percent Auto 76.4 % (45-73); Platelet Count 161 X10*3/uL (160-400); Red Blood Count 3.67 X10*6/uL (4.20-5.50); Red Cell Distribution Width 12.3 % (11.0-16.0); White Blood Count 14.1 X10*3/uL (4.8-10.8)
[2024-01-10 09:36] LABS: Appearance Urine Cloudy; Color Urine Yellow; Glucose Urine UA Negative (Negative); Leukocyte Esterase Urine Moderate (2+) (Negative); Nitrite Urine Positive (Negative); PH 5.5 (5.0-9.0); Specific Gravity - Urine 1.015 (1.005-1.025); UMIC TRIGGER UACC YES; Urine Blood Moderate (2+) (Negative); Urine Ketones Trace mg/dL (Negative); Urine Protein 30 (1+) mg/dL (Neg-Trace)
[2024-01-10 09:45] LABS: UACC Culture Trigger YES
[2024-01-10 09:46] LABS: Bacteria Urine 2+ (None Seen); Hyaline Casts Urine 0-2 /LPF (0-2)
[2024-01-10 09:50] LABS: Alanine Aminotransferase 17 U/L (0-31); Albumin Level 4.5 g/dL (3.5-5.0); Alkaline Phosphatase 86 U/L (39-117); Anion Gap 14 (12-20); Aspartate Amino Transferase 13 U/L (5-31); Bilirubin Total 0.9 mg/dL (0.0-1.0); Blood Urea Nitrogen 6 mg/dL (9-16); Calcium 9.5 mg/dL (8.4-10.2); Carbon Dioxide 21 mmol/L (22-29); Chloride 105 mmol/L (96-108); Creatinine Clr Calc Pharmacy 87.5; Estimated Glomerular Filt Rate > 60; Glucose Random 125 mg/dL (60-115); Lipase 23 U/L (8-78); Potassium 3.5 mmol/L (3.3-5.1); Sodium 136 mmol/L (135-145); Total Protein 8.3 g/dL (6.5-8.0)
--- NOTE | 2024-01-10 10:16 | ED.ABDPAIN ---
HPI - Abdominal Pain General Chief Complaint: Back Pain/Injury Stated Complaint: sharp side pain Time Seen by Provider: 01/10/24 10:13 Source: patient, RN notes reviewed and old records reviewed Mode of arrival: ambulatory History of Present Illness ED Provider: Jacque Vo PA-C HPI narrative: 38-year-old female with no significant past medical history presenting to the ED complaining of right flank pain radiating to right lower quadrant with associated nausea, anorexia, headache, and urinary frequency x3 days. Denies fever, chills, dysuria, hematuria, vomiting, vaginal bleeding/discharge Related Data Home Medications ?Medication ?Instructions ?Recorded ?Confirmed JQU-ffio-[id number]-omega 3-fat com #1 27 cap PO 04/05/22 04/05/22 mg-1 mg-300 mg capsule folic acid 800 mcg tablet 0.8 mg PO DAILY 04/05/22 04/05/22 Previous Rx's ?Medication ?Instructions ?Recorded cefuroxime axetil 500 mg tablet 500 mg PO BID #14 tabs 07/02/22 metoclopramide HCl 5 mg tablet 5 mg PO BID #10 tabs 09/05/22 amoxicillin 875 mg-potassium 1 tab PO BID #20 tabs 10/31/22 clavulanate 125 mg tablet chlorhexidine gluconate 0.12 % 15 ml buccal BID #118 mL 10/31/22 mouthwash (Peridex) Allergies Allergy/AdvReac Type Severity Reaction Status Date / Time No Known Allergies Allergy Verified 01/10/24 09:05 [No Known Allergies*] Review of Systems Review of Systems Constitutional: No Fever, No Chills ENT/Mouth: No Ear Pain, No Nasal Congestion, No Sinus Pain, No Hoarseness, No sore throat, No Rhinorrhea, No Swallowing Difficulty Cardiovascular: No Chest Pain, No SOB Respiratory: No Cough, No Sputum, No Wheezing Gastrointestinal: + Nausea, No Vomiting, No Diarrhea, No Constipation, + Abdominal pain Genitourinary: No Dysuria, +Urinary Frequency, No Hematuria, No Urinary Incontinence/retention, No Urgency, + Flank Pain Musculoskeletal: No joint pain, No Myalgias, No Joint Swelling Skin: No Skin Lesions, No rash Neuro: No Weakness, No Numbness, No Paresthesias, +ARCHIBALD Yes all other systems are reviewed and are negative Constitutional: Reports as per [facility] Past Medical History Attestation statement: The following information was validated with the patient. Source: old records reviewed Social History Social History Alcohol intake: never Patient Tobacco Use Status: Former Tobacco user Advance Directives: No Physical Exam ED Vital Signs: Vital Signs - 24 hr 01/10/24 09:04 01/10/24 11:21 01/10/24 11:59 Temperature 96.5 F L 97 F 98.2 F Pulse Rate 104 H 78 80 Respiratory Rate 16 18 16 Blood Pressure 116/80 125/75 125/83 Pulse Oximetry 94 100 99 Oxygen Delivery Method Room Air Room Air Room Air 01/10/24 12:31 01/10/24 14:00 Temperature 97.2 F Pulse Rate 78 69 Respiratory Rate 18 16 Blood Pressure 117/77 122/70 Pulse Oximetry 100 100 Oxygen Delivery Method Room Air Room Air BMI result Body Mass Index 30.0 Const General: cooperative, healthy appearing and no acute distress Orientation/consciousness: patient oriented x3 Limitations: no limitations HENMT Head: Yes normal to inspection and Yes atraumatic Ears: hearing grossly normal bilaterally General nose exam: Normal external nose present Face and sinus: Yes normal facial exam Eyes General: appearance normal, both eyes and all related structures EOM: EOMs intact bilaterally Neck Neck: Yes normal visual inspection and Yes no meningeal signs Resp Effort & Inspection: normal respiratory effort and no respiratory distress Cardio Rate: regular rate GI Inspection: Yes normal to inspection Palpation (GI): Soft to palpation, Tenderness to palpation present (GI) in the RLQ; with no rebound tenderness, no guarding and not rigid General: Yes CVA tenderness on the right Back/Spine/Pelvis Back: CVA tenderness Skin Rashes: no rashes Wounds: no wounds Neuro General: patient oriented x3, tone normal and no meningeal signs Cranial nerves: Yes CN's II-XII intact bilaterally Gait exam (Neuro): Normal gait present Extrem General: Yes normal to inspection Course Course Course Narrative: -leukocytosis of 14.1. -UA contaminated however appears infected, infection now suspected > will obtain lactic and blood cultures and give empiric IV antibiotics -lactic acid negative CT abdomen pelvis wo IV con IMPRESSION: Mild right perinephric stranding. No right hydronephrosis. Consider possibility of recently passed calculus versus pyelonephritis. >1345--on re-evaluation patient reports minimal symptomatic improvement however continued pain, will give IV morphine re-evaluate. -1502--on re-evaluation patient reports continued pain, does not feel safe for discharge home will give additional morphine and discuss case with hospitalist, Dr. Purdy Medical Decision Making Medical Decision Making MDM Narrative: 38-year-old female with no significant past medical history presenting to the ED complaining of right flank pain radiating to right lower quadrant with associated nausea, anorexia, headache, and urinary frequency x3 days. On exam tachycardic likely from pain, appears uncomfortable, pacing around room, abdomen soft with RLQ/suprapubic tenderness and right CVAT. No rebound or guarding. Concern for renal stone vs pyelo vs UTI. Appendicitis on differential however lower. Lower suspicion for ovarian torsion/TOA or diverticulitis/cholecystitis/lithiasis Low suspicion for severe sepsis at this time as tachycardia likely from pain Plan: Labs, UA, CT AP, IVF, pain control, re-evaluate Please refer to course for remaining clinical decision making, interpretation of labs/imaging results, and discussions with consultants and/or family members. Differential Diagnosis Differential Diagnoses: The differential diagnosis associated with the presentation includes As above Admission/Observation Consideration of admission/observation: Escalation of care including admission/observation considered Lab Data [facility] Lab Attestation statement: I reviewed the patient's lab results. 01/10/24 09:23 01/10/24 09:23 Labs: Lab Results 01/10/24 01/10/24 Range/Units 09:23 10:51 WBC 14.1 H (4.8-10.8) X10*3/uL RBC 3.67 L (4.20-5.50) X10*6/uL Hgb 12.2 (12.0-16.0) g/dl Hct 35.0 L (37.0-47.0) % MCV 95.4 (80.0-98.0) fL MCH 33.2 H (27.0-33.0) pg MCHC 34.9 (31.0-35.0) g/dl RDW 12.3 (11.0-16.0) % Plt Count 161 (160-400) X10*3/uL MPV 9.2 L (9.4-12.3) fL Immature Gran % (Auto) 0.3 (0.0-0.4) % Neut % (Auto) 76.4 H (45-73) % Lymph % (Auto) 13.7 L (20-40) % [place] % (Auto) 9.1 (2-11) % Eos % (Auto) 0.2 (0-4) % Baso % (Auto) 0.3 (0-2) % Lymph # (Auto) 1.9 (1.2-4.9) X10*3/uL [place] # (Auto) 1.3 H (0.1-1.2) X10*3/uL Eos # (Auto) 0.0 (0.0-0.4) X10*3/uL Baso # (Auto) 0.0 (0.0-0.2) X10*3/uL Abs Immat Gran (auto) 0.04 H (0.00-0.03) X10*3/uL Absolute Neuts (auto) 10.8 H (2.0-8.3) x10*3/uL Absolute Nucleated RBC 0.000 (0.0-0.012) X10*3/uL Nucleated RBC % (auto) 0.0 (0.0-0.2) /100WBC Sodium 136 (135-145) mmol/L Potassium 3.5 (3.3-5.1) mmol/L Chloride 105 (96-108) mmol/L Carbon Dioxide 21 L (22-29) mmol/L Anion Gap 14 (12-20) BUN 6 L (9-16) mg/dL Creatinine 0.88 (0.5-1.4) mg/dL Estim Creat Clear Calc 87.5 Estimated GFR > 60 Random Glucose 125 H (60-115) mg/dL Lactic Acid 0.8 (0.5-2.0) mmol/L Calcium 9.5 D (8.4-10.2) mg/dL Total Bilirubin 0.9 (0.0-1.0) mg/dL AST 13 (5-31) U/L ALT 17 (0-31) U/L Alkaline Phosphatase 86 (39-117) U/L Total Protein 8.3 H (6.5-8.0) g/dL Albumin 4.5 (3.5-5.0) g/dL Lipase 23 (8-78) U/L Beta HCG, Quant < 2 mIU/mL Urine Color Yellow Urine Appearance Cloudy Urine pH 5.5 (5.0-9.0) Ur Specific [place] 1.015 (1.005-1.025) Urine Protein 30 (1+) H (Neg-Trace) mg/dL Urine Glucose (UA) Negative (Negative) mg/dL Urine Ketones Trace (Negative) mg/dL Urine Blood Moderate (2+) H (Negative) Urine Nitrite Positive H (Negative) Ur Leukocyte Esterase Moderate (2+) H (Negative) Urine RBC 3-5 H (0-2) /HPF Urine WBC 11-20 H (0-5) /HPF Ur Squamous Epith Cells 11-20 (0-2) /HPF Urine Bacteria 2+ (None Seen) Hyaline Casts 0-2 (0-2) /LPF Independent Interpretation I performed an independent interpretation of an: CT Scan Radiology Impression Discussion of test interpretation with radiology: I have reviewed the radiologist's reading. External Record Review External record reviewed: Inpatient record, Office record, Outpatient record, Prior outpatient labs, Prior outpatient radiology, Primary care record and Outside ED record Tests considered The following testing was considered but not selected: As above Prescription Management I considered prescription management with: Pain Medication Medications Administered Discontinued Medications Generic Name Dose Route Start Last Admin Trade Name Ronnyq PRN Reason Stop Dose Admin Sodium Chloride 1,000 mls @ 999 mls/hr 01/10/24 10:45 01/10/24 11:59 Ns IV 01/10/24 11:45 Infused .Q1H1M ABHINAV Infusion Ceftriaxone Sodium 1 gm/ 50 mls @ 100 mls/hr 01/10/24 10:41 01/10/24 11:42 Sodium Chloride IV 01/10/24 11:10 Infused ONCE ONE Infusion Sodium Chloride 1,000 mls @ 999 mls/hr 01/10/24 13:45 01/10/24 15:05 Ns IV 01/10/24 14:45 Infused .Q1H1M ABHINAV Infusion Ketorolac Tromethamine 15 mg 01/10/24 10:40 01/10/24 10:57 Ketorolac Tromethamine 15 Mg/Ml Vial IVPUSH 01/10/24 10:41 15 mg ONCE ONE Administration Ketorolac Tromethamine 15 mg 01/10/24 12:28 01/10/24 12:58 Ketorolac Tromethamine 15 Mg/Ml Vial IVPUSH 01/10/24 12:29 15 mg ONCE ONE Administration Morphine Sulfate 2 mg 01/10/24 13:34 01/10/24 13:58 Morphine Sulfate 2 Mg/Ml Cartridge IVPUSH 01/10/24 13:35 2 mg ONCE ONE Administration Protocol Ondansetron HCl 4 mg 01/10/24 10:40 01/10/24 10:57 Ondansetron Hcl 4 Mg/2 Ml Vial IVPUSH 01/10/24 10:41 4 mg ONCE ONE Administration Critical Care Time Critical Care Time Critical Care Time: Yes Total Critical Care Time: 40 Attestation: I have personally provided critical care time exclusive of time spent on separately billable procedures. Time includes review of lab data, radiology results, discussion with consultants, and monitoring for potential decompensation. Intervention performed as documented. Discharge Plan Discharge Clinical Impression: Pyelonephritis Patient Disposition: Admitted As Inpatient Print Language: Bulgarian
[2024-01-10] MEDS: 0.9 % Sodium Chloride 1,000 ML 999 ML IV ×2 (10:56→13:58)
[2024-01-10] MEDS: Ketorolac Tromethamine 15 MG/ML VIAL IVPUSH ×2 (10:57→12:58)
[2024-01-10] MEDS: ondansetron HCL 4 MG/2 ML VIAL IVPUSH (10:57)
[2024-01-10] MEDS: cefTRIAXone sodium 1 GM in 0.9 % Sodium Chloride 50 ML IV (11:04)
[2024-01-10 11:14] LABS: Lactic Acid 0.8 mmol/L (0.5-2.0)
[2024-01-10 11:18] LABS: HCG Quantitative < 2 mIU/mL
[2024-01-10] MEDS: Morphine Sulfate 2 MG/ML CARTRIDGE IVPUSH ×3 (13:58→15:41)
--- NOTE | 2024-01-10 15:30 | P.HPHOSP_ITS ---
History of Present Illness Date of Service: 01/10/24 Attending physician on admission: Ashwin [facility] Chief Complaint: r flank pain, urinary frequency 38 year old female without significant medical history presented to the ED earlier today for evaluation of nausea, anorexia, headache, urinary frequency/urgency ongoing x 3 days. There is also 10/10 right flank pain radiating into the RLQ. Denies fevers chills, vomiting, dysuria, hematuria, diarrhea, sob, lightheadedness, palpitations, or chest pain. Denies history of similar symptoms or history of kidney stones. Initially tachycardic to 104 likely 2/2 pain, vitals otherwise stable. There is a leukocytosis 14.1. Renal function normal, lytes wnl except co2 21. Lactic acid 0.8. UA with 2+ leuks, positive nitrites, 2+ blood, positive urinary sediment and 2+ bacteria. Ct abd/pelvis shows mild right perinephric stranding but no hydronephrosis, consider recently passed stone vs pyelonephritis. In the ed, has received 1g rocephin, ketorolac x2, morphine, and IVF and zofran. Review of Systems 2 Review of Systems: Yes all other systems are reviewed and are negative [facility] Medical History No pertinent past medical history Social History Alcohol intake: never Patient Tobacco Use Status: Former Tobacco user Advance Directives: No Meds Allergies Allergy/AdvReac Type Severity Reaction Status Date / Time No Known Allergies Allergy Verified 01/10/24 09:05 [No Known Allergies*] Home Medications ?Medication ?Instructions ?Recorded ?Confirmed ?Last Taken ?Type RED-inop-ZO-omega 3-fat com #1 27 cap PO 04/05/22 04/05/22 Unknown History mg-1 mg-300 mg capsule folic acid 800 mcg tablet 0.8 mg PO DAILY 04/05/22 04/05/22 Unknown History Physical Exam 2 Vital Signs and Narrative: Vital Signs: Last Vital Signs Temp 97.2 F 01/10/24 14:00 Pulse 69 01/10/24 14:00 Resp 16 01/10/24 14:00 BP 122/70 01/10/24 14:00 Pulse Ox 100 01/10/24 14:00 O2 Del Method Room Air 01/10/24 14:00 BMI result Body Mass Index 30.0 Constitutional - Awake and Alert, uncomfortable appearing Eyes - PERRLA, EOMI Cardiovascular - S1S2, RRR, No edema Respiratory - Normal lung expansion, Normal respiratory effort, No respiratory distress, CTA bilaterally Gastrointestinal - RLQ pain, ND; +BS; No rebound or guarding - R sided CVA tenderness Extremities - no calf tenderness bilaterally, no swelling Skin - Warm/Dry Neurological - Alert & oriented x3 Psychological - Appropriate affect Results Labs 01/10/24 09:23 01/10/24 09:23 Labs: Laboratory Results - last 24 hr 01/10/24 01/10/24 09:23 10:51 MCV 95.4 MCH 33.2 H MCHC 34.9 RDW 12.3 Plt Count 161 MPV 9.2 L Immature Gran % (Auto) 0.3 Neut % (Auto) 76.4 H Lymph % (Auto) 13.7 L [place] % (Auto) 9.1 Eos % (Auto) 0.2 Baso % (Auto) 0.3 Lymph # (Auto) 1.9 [place] # (Auto) 1.3 H Eos # (Auto) 0.0 Baso # (Auto) 0.0 Abs Immat Gran (auto) 0.04 H Absolute Neuts (auto) 10.8 H Absolute Nucleated RBC 0.000 Nucleated RBC % (auto) 0.0 Anion Gap 14 Estim Creat Clear Calc 87.5 Estimated GFR > 60 Random Glucose 125 H Lactic Acid 0.8 Calcium 9.5 D Total Bilirubin 0.9 AST 13 ALT 17 Alkaline Phosphatase 86 Total Protein 8.3 H Albumin 4.5 Lipase 23 Beta HCG, Quant < 2 Urine Color Yellow Urine Appearance Cloudy Urine pH 5.5 Ur Specific [place] 1.015 Urine Protein 30 (1+) H Urine Glucose (UA) Negative Urine Ketones Trace Urine Blood Moderate (2+) H Urine Nitrite Positive H Ur Leukocyte Esterase Moderate (2+) H Urine RBC 3-5 H Urine WBC 11-20 H Ur Squamous Epith Cells 11-20 Urine Bacteria 2+ Hyaline Casts 0-2 Imaging Radiologist's Impressions: Impressions Abdomen/Pelvis CT 01/10/24 11:28 IMPRESSION: Mild right perinephric stranding. No right hydronephrosis. Consider possibility of recently passed calculus versus pyelonephritis. Assessment and Plan (1) Pyelonephritis: Status: Acute Plan 38 year old female without significant medical history to be observed for uncontrolled pain r/t acute pyelonephritis #Acute pyelonephritis with intractable pain -CT shows r perinephritic fat stranding. Given positive UA with 2+ leuks, +nitrites, 2+ blood, urinary sediment and 2+ bacteria, favor dx acute pyelonephritis over passed stone -IV ceftriaxone 1g daily (initiated 01/09) -antiemetics prn -pain management prn with pain scale and bonita ketorolax 15mg q6h x 3 doses -IVF -clear liquids, advance as tolerated -follow renal function/lytes dvt prophylaxis- early ambualtion, SCPs full code Quality Stroke Does the patient have a stroke diagnosis?: No VTE Prior VTE?: No VTE Risk Level:: Medical - moderate - high VTE Device Contraindication: N/A - Device Ordered VTE Drug Contraindication: Treatment Not Indicated
[2024-01-10] MEDS: 0.9 % Sodium Chloride 1,000 ML 100 ML IVCONT (15:43)
--- NOTE | 2024-01-10 16:44 | PHA.MEDREC ---
Pharmacy Consult ? Medication Reconciliation Pharmacy has completed the medication reconciliation. Spoke to patient through dive superintendent service (Maggie) to confirm med list. Patient states she is not on any medication.
--- NOTE | 2024-01-10 17:13 | PC.NURSE ---
Viet from [employer] Vice President services assisted with admission
[2024-01-10] MEDS: Ketorolac Tromethamine 30 MG/ML VIAL 15 MG IVPUSH ×2 (17:18→23:15)
[2024-01-10] MEDS: Melatonin 3 MG TABLET 6 MG PO (20:13)
[2024-01-10] MEDS: Morphine Sulfate 4 MG/ML CARTRIDGE IVPUSH (20:13)
[2024-01-10] MEDS: 0.9 % Sodium Chloride Flush 3 ML SYRINGE IVFLUSH (20:13)
[2024-01-11 03:08] VITALS: BP 125/70; PULSE 70; RESP 16; TEMP 36.4; O2SAT 100
[2024-01-11] MEDS: Ketorolac Tromethamine 30 MG/ML VIAL 15 MG IVPUSH (05:20)
[2024-01-11] MEDS: 0.9 % Sodium Chloride 1,000 ML 100 ML IVCONT ×2 (05:20→11:53)
[2024-01-11 06:42] LABS: MANUAL DIFF FLAG NO
[2024-01-11 06:54] LABS: Basophils Percent Auto 0.3 % (0-2); Eosinophils Absolute Auto 0.1 X10*3/uL (0.0-0.4); Eosinophils Percent Auto 1.1 % (0-4); Hematocrit 29.6 % (37.0-47.0); Hemoglobin 9.9 g/dl (12.0-16.0); Imm Gran Abs Auto 0.02 X10*3/uL (0.00-0.03); Imm Gran Pct Auto 0.3 % (0.0-0.4); Lymphocytes Absolute Auto 1.3 X10*3/uL (1.2-4.9); Lymphocytes Percent Auto 21.1 % (20-40); Mean Corpuscular HGB Conc 33.4 g/dl (31.0-35.0); Mean Corpuscular Hemoglobin 33.3 pg (27.0-33.0); Mean Corpuscular Volume 99.7 fL (80.0-98.0); Mean Platelet Volume 9.6 fL (9.4-12.3); Monocytes Absolute Auto 0.5 X10*3/uL (0.1-1.2); Monocytes Percent Auto 8.7 % (2-11); Neutrophils Absolute Auto 4.2 x10*3/uL (2.0-8.3); Neutrophils Percent Auto 68.5 % (45-73); Platelet Count 146 X10*3/uL (160-400); Red Blood Count 2.97 X10*6/uL (4.20-5.50); Red Cell Distribution Width 12.7 % (11.0-16.0); White Blood Count 6.1 X10*3/uL (4.8-10.8)
[2024-01-11 07:25] LABS: Anion Gap 13 (12-20); Blood Urea Nitrogen 7 mg/dL (9-16); Calcium 8.3 mg/dL (8.4-10.2); Carbon Dioxide 21 mmol/L (22-29); Chloride 110 mmol/L (96-108); Creatinine Clr Calc Pharmacy 94.3; Estimated Glomerular Filt Rate > 60; Glucose Random 109 mg/dL (60-115); Potassium 3.6 mmol/L (3.3-5.1); Sodium 140 mmol/L (135-145)
[2024-01-11] MEDS: oxyCODONE HCl Immed Release 5 MG TABLET PO (07:35)
[2024-01-11 07:45] VITALS: BP 110/58; PULSE 65; RESP 16; TEMP 36.5; O2SAT 96
[2024-01-11] MEDS: cefTRIAXone sodium 1 GM in 0.9 % Sodium Chloride 50 ML IV (10:29)
[2024-01-11 11:44] VITALS: BP 113/62; PULSE 66; RESP 18; TEMP 36.8; O2SAT 97
--- NOTE | 2024-01-11 12:13 | P.DS_ITS ---
DS: Providers Provider Date of Service: 01/11/24 Date of admission: 01/10/24 15:26 Primary care physician: Unknown Physician DS: Diagnosis Discharge Diagnosis (1) Pyelonephritis: Status: Acute DS: Summary Hospital Course Hospital Course: Chief Complaint: r flank pain, urinary frequency 38 year old female without significant medical history presented to the ED earlier today for evaluation of nausea, anorexia, headache, urinary frequency/urgency ongoing x 3 days. There is also 10/10 right flank pain radiating into the RLQ. Denies fevers chills, vomiting, dysuria, hematuria, diarrhea, sob, lightheadedness, palpitations, or chest pain. Denies history of similar symptoms or history of kidney stones. Initially tachycardic to 104 likely 2/2 pain, vitals otherwise stable. There is a leukocytosis 14.1. Renal function normal, lytes wnl except co2 21. Lactic acid 0.8. UA with 2+ leuks, positive nitrites, 2+ blood, positive urinary sediment and 2+ bacteria. Ct abd/pelvis shows mild right perinephric stranding but no hydronephrosis, consider recently passed stone vs pyelonephritis. In the ed, has received 1g rocephin, ketorolac x2, morphine, and IVF and zofran. Hospital course : Acute pyelonephritis with intractable pain and nausea. Due to concern for inabi lity to take pills by mouth, she was observed in the hospital overnight and continued on IV ceftriaxone. By the next morning, her symptoms had much improved, with minimal pain, WBC down to normal, and tachycardia resolved. Urine culture is showing gram-negative bacteria. 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 She no longer has nausea or vomiting and will be discharged with oral Cefuroxime 500 mg twice daily for a total of 10 days of antibiotics. Final diagnosis: acutye pyeloneprhiis Time Attestation Discharge Coordination Time (in mins): 35 Quality: Safe Use of Opioids Does Pt have an Active Cancer Diagnosis on the Problem List?: No Quality: Stroke Does the patient have a stroke diagnosis?: No Physical Exam Vital Signs: Vital Signs: Last Vital Signs Temp 98.3 F 01/11/24 11:44 Pulse 66 01/11/24 11:44 Resp 18 01/11/24 11:44 BP 113/62 01/11/24 11:44 Pulse Ox 97 01/11/24 11:44 O2 Del Method Room Air 01/11/24 11:44 BMI result Body Mass Index 30.3 General: AO X 3, no acute distress Resp: CTA bilateral CVS: S1,S2,RRR GI: +BS, NT, no distention Skin: No rash Neuro: motor grossly intact Psych: appropriate affect DS: Data Data Completed and Pending Labs on day of discharge: Laboratory Results - last 24 hr 01/11/24 05:27 WBC 6.1 RBC 2.97 L Hgb 9.9 L Hct 29.6 L MCV 99.7 H MCH 33.3 H MCHC 33.4 RDW 12.7 Plt Count 146 L MPV 9.6 Immature Gran % (Auto) 0.3 Neut % (Auto) 68.5 Lymph % (Auto) 21.1 [place] % (Auto) 8.7 Eos % (Auto) 1.1 Baso % (Auto) 0.3 Lymph # (Auto) 1.3 [place] # (Auto) 0.5 Eos # (Auto) 0.1 Baso # (Auto) 0.0 Abs Immat Gran (auto) 0.02 Absolute Neuts (auto) 4.2 Absolute Nucleated RBC 0.000 Nucleated RBC % (auto) 0.0 Sodium 140 Potassium 3.6 Chloride 110 H Carbon Dioxide 21 L Anion Gap 13 BUN 7 L Creatinine 0.82 Estim Creat Clear Calc 94.3 Estimated GFR > 60 Random Glucose 109 Calcium 8.3 L D Preliminary micro results at discharge 01/10/24 Unknown Urine Culture - Preliminary Urine clean catch - Clean Catch Midstream Gram negative cinda Discharge Plan Discharge Anticipated Discharge Date/Time: 01/11/24 12:07 Patient Disposition: Home, Self-Care Discharge Diagnosis: Acute pyelonephritis Referrals: Physician,Unknown J [Primary Care Provider] - 1 Week Discharge Medications: New cefuroxime axetil 500 mg tablet 500 mg PO BID 8 Days Qty: 16 0RF Discharge Orders: Discharge Order (Routine); Ordered 01/11/24 Ordered By: Ashwin Eisenberg Diet: Advance to usual diet Activity on Discharge: As tolerated Stand Alone Forms: Patient Portal Discharge page Print Language: [place] Care Plan Goals: to fully treat acute Pyelonephritis Health Concerns: acute pyelonephritis Plan of Treatment: take Cefuroxime 500 mg twice daily for 8 more days, be sure to take all of them even if you feel better--next dose tomorrow morning follo up with your Doctor in a week, call for appointment Assessment: see above Patient Instructions: Kidney Infection (GEN)
--- NOTE | 2024-01-11 15:20 | MHC.CM.PN ---
PT IS FULLY INDEPENDENT, NO SERVICES, NO DME PT DOES NOT REQUIRE CM INTERVENTION SHE WILL DC HOME TODAY WITH NO SERVICES VIA PRIVATE TRANSPORT
== END 2024-01-11 12:58 | disposition home or self-care (01) ==
LOC: HO.ED 15:04 → HO.EDOVER 15:33 → HO.S3 15:59
PROVIDERS: Physician Assistant; Admitting Provider Physician Assistant; Emergency Provider Emergency Medicine; Visit Provider Internal Medicine
DX: N12 Tubulo-interstitial nephritis, not specified as acute or chronic (principal); R10.31 Right lower quadrant pain; R11.0 Nausea; R35.0 Frequency of micturition; R51.9 Headache, unspecified; D72.829 Elevated white blood cell count, unspecified
CPT/HCPCS: 36415; 74176; 80048; 80053; 81001; 83605; 83690; 84702; 85025; 87040; 87086; 87088; 87186; 96361; 96365; 96366; 96375; 96376; 99221; 99285; J0696; J1885; J2270; J2405

== ENCOUNTER → 2024-01-10 15:26 | Outpatient (BNV) | payer SELFPAY | PROVIDERS: Admitting Provider Physician Assistant; Emergency Provider Emergency Medicine; Visit Provider Physician Assistant | DX: N12 Tubulo-interstitial nephritis, not specified as acute or chronic (principal) | CPT/HCPCS: 99222; 99239 ==

== ENCOUNTER 2024-01-12 03:13 | Emergency (ER) | payer MEDICAID, SELFPAY ==
[2024-01-12 03:39] VITALS: BP 142/80; PULSE 93; RESP 16; TEMP 36.8; O2SAT 100; BMI 30.3
--- NOTE | 2024-01-12 03:53 | ED_ITS ---
HPI - Female Genitourinary General Chief complaint: Urogenital-Female Stated complaint: kidney infection Time Seen by Provider: 01/12/24 03:31 Source: patient Mode of arrival: ambulatory Limitations: no limitations History of Present Illness ED Provider: dimas VERDE Narrative: pt with dysuria and r flank pain for last 4 days was seen here 01/09 given IV Rocephin for early pyelonephritis comes back as she is still having the pain patient is started on Ceftin no fever no chills no vomiting feels slightly nauseated Related Data Previous Rx's ?Medication ?Instructions ?Recorded cefuroxime axetil 500 mg tablet 500 mg PO BID 8 days #16 tabs 01/11/24 ibuprofen 600 mg tablet 600 mg PO Q6H PRN fever or pain 01/12/24 #30 tabs Allergies Allergy/AdvReac Type Severity Reaction Status Date / Time No Known Allergies Allergy Verified 01/12/24 03:41 [No Known Allergies*] Review of Systems Review of Systems: Yes all other systems are reviewed and are negative PMFSH Past Medical History Medical History No pertinent past medical history Social History Social History Alcohol intake: never Patient Tobacco Use Status: Never used Tobacco Second Hand Smoke Exposure: No Advance Directives: No Advance Directives Information Provided: Yes service: No Physical Exam Vital Signs: Vital Signs: Last Vital Signs Temp 98.3 F 01/12/24 06:50 Pulse 93 01/12/24 06:50 Resp 16 01/12/24 06:50 BP 142/80 H 01/12/24 06:50 Pulse Ox 100 01/12/24 06:50 O2 Del Method Room Air 01/12/24 06:50 BMI result Body Mass Index 30.3 Appearance: Alert. Oriented X3. No acute distress. Eyes: No pallor or icterus ENT: Pharynx normal. Oral Mucosa moist Neck: Normal inspection. Neck supple. CVS: Normal heart rate and rhythm. Pulses normal. Respiratory: No respiratory distress. Equal air entry bilateral, no wheezing/rales/rhonchi Abdomen: Soft and nontender. Bowel sounds are present, no mass palpable, mild right CVA tenderness Skin: Skin warm and dry. Normal skin color. Normal skin turgor. Extremities: No lower extremity edema. No calf tenderness Neuro: Oriented X 3. Medications Administered Discontinued Medications Generic Name Dose Route Start Last Admin Trade Name Yessi PRN Reason Stop Dose Admin Sodium Chloride 1,000 mls @ 999 mls/hr 01/12/24 04:03 01/12/24 05:01 Ns IV 01/12/24 05:03 Infused .Q1H1M ONE Infusion Ketorolac Tromethamine 30 mg 01/12/24 06:11 01/12/24 06:32 Ketorolac Tromethamine 30 Mg/Ml Vial IVPUSH 01/12/24 06:12 30 mg ONCE ONE Administration Ondansetron HCl 4 mg 01/12/24 06:11 01/12/24 06:32 Ondansetron Hcl 4 Mg/2 Ml Vial IVPUSH 01/12/24 06:12 4 mg ONCE ONE Administration Medical Decision Making Medical Decision Making [facility] Narrative: Patient with UTI with left flank pain already received Rocephin intake cefuroxime p.o. repeat labs showed WBC count 6.1 with no left shift patient is afebrile no vomiting will treat her symptomatically Lab Data [facility] Lab Attestation statement: I reviewed the patient's lab results. Labs: Lab Results 01/12/24 Range/Units 06:13 Urine Color Yellow Urine Appearance Cloudy Urine pH 6.5 (5.0-9.0) Ur Specific [place] 1.010 (1.005-1.025) Urine Protein Negative (Neg-Trace) mg/dL Urine Glucose (UA) Negative (Negative) mg/dL Urine Ketones Negative (Negative) mg/dL Urine Blood Negative (Negative) Urine Nitrite Negative (Negative) Ur Leukocyte Esterase Small (1+) H (Negative) Urine RBC 0-2 (0-2) /HPF Urine WBC 0-5 (0-5) /HPF Ur Squamous Epith Cells 11-20 (0-2) /HPF Urine Bacteria 1+ (None Seen) Hyaline Casts 0-2 (0-2) /LPF Discharge Plan Discharge Clinical Impression: Urinary tract infection, Back pain Patient Disposition: Home, Self-Care Instructions: Urinary Tract Infection in Women (DC), Back Pain (ED) Additional Instructions: Drink plenty of fluids Your infection in the urine is getting better pain likely is musculoskeletal Ibuprofen for pain Prescriptions: New ibuprofen 600 mg tablet 600 mg PO Q6H PRN (Reason: fever or pain) Qty: 30 0RF No Action cefuroxime axetil 500 mg tablet 500 mg PO BID 8 Days Qty: 16 0RF Interventions: ED Discharge Assessment Last Done: 01/12/24 06:50 Discharge Date/Time: 01/12/24 06:51 Print Language: Romansh
[2024-01-12] MEDS: 0.9 % Sodium Chloride 1,000 ML 999 ML IV (04:00)
[2024-01-12 06:19] LABS: Appearance Urine Cloudy; Color Urine Yellow; Glucose Urine UA Negative (Negative); Leukocyte Esterase Urine Small (1+) (Negative); Nitrite Urine Negative (Negative); PH 6.5 (5.0-9.0); UMIC TRIGGER UACC YES; Urine Blood Negative (Negative); Urine Ketones Negative (Negative); Urine Protein Negative (Neg-Trace)
[2024-01-12 06:31] LABS: Bacteria Urine 1+ (None Seen); Hyaline Casts Urine 0-2 /LPF (0-2); RBC Urine 0-2 /HPF (0-2); UACC Culture Trigger YES; WBC Urine 0-5 /HPF (0-5)
[2024-01-12] MEDS: ondansetron HCL 4 MG/2 ML VIAL IVPUSH (06:32)
[2024-01-12] MEDS: Ketorolac Tromethamine 30 MG/ML VIAL IVPUSH (06:32)
--- NOTE | 2024-01-12 06:32 | PC.NURSE ---
unable to scan meds due to computer issues
[2024-01-12 06:50] VITALS: BP 142/80; PULSE 93; RESP 16; TEMP 36.8; O2SAT 100
== END 2024-01-12 06:51 | disposition home or self-care (01) ==
PROVIDERS: Emergency Provider Internal Medicine
DX: N39.0 Urinary tract infection, site not specified (principal); R10.9 Unspecified abdominal pain
CPT/HCPCS: 81001; 96361; 96374; 96375; 99283; 99284; J1885; J2405

== ENCOUNTER 2024-02-07 09:26 | Emergency (ER) | payer SELFPAY ==
[2024-02-07 09:43] VITALS: BP 145/82; PULSE 75; RESP 16; TEMP 36.8; O2SAT 100; BMI 29.6
--- NOTE | 2024-02-07 09:52 | ED.GENADULT ---
HPI - General Adult General Chief complaint: Dental/Oral Stated complaint: mouth pain Time Seen by Provider: 02/07/24 09:51 Source: patient Mode of arrival: ambulatory Limitations: no limitations History of Present Illness ED Provider: Belinda Osullivan PA-C HPI narrative: Patient is a 38 year old assigned female at with no reported medical history presenting to the emergency department today with right sided dental pain. Patient states that 2 days ago she ate something that broke her right molar and she has been having pain ever since. Patient denies any dizziness, lightheadedness, abdominal pain, nausea, vomiting, fever, chills, blurry vision, double vision, loss of vision, chest pain, difficulty breathing, shortness of breath, back pain, night sweats, pain with urination, increased urinary frequency, increased urinary urgency, blood in her urine or stool, syncope or a near syncopal episode, bowel incontinence, bladder incontinence, or any other complaints at this time. Onset (ago): day(s) (2) Location: mouth and right Severity: mild Severity scale (1-10): 4 Quality: aching and dull Pain Consistency: constant Relieving factors: none Exacerbating factors: other (eating) Associated symptoms: denies other symptoms Treatments prior to arrival: NSAID Related Data Previous Rx's ?Medication ?Instructions ?Recorded cefuroxime axetil 500 mg tablet 500 mg PO BID 8 days #16 tabs 01/11/24 ibuprofen 600 mg tablet 600 mg PO Q6H PRN fever or pain 01/12/24 #30 tabs chlorhexidine gluconate 0.12 % 15 ml buccal BID #118 mL 02/07/24 mouthwash (Peridex) naproxen 500 mg tablet 500 mg PO BID 7 days #14 tabs 02/07/24 penicillin V potassium 500 mg 500 mg PO BID 10 days #20 tabs 02/07/24 tablet Allergies Allergy/AdvReac Type Severity Reaction Status Date / Time No Known Allergies Allergy Verified 02/07/24 09:44 [No Known Allergies*] Review of Systems Constitutional: Constitutional: Reports no additional constitutional complaints, Denies chills, Denies fever(s) and Denies night sweats Eyes: Eyes: Reports no additional eye complaints, Denies blurry vision, Denies change in vision, Denies diplopia, Denies eye discharge, Denies loss of vision and Denies eye pain ENT: Denies dizziness and Reports mouth pain Cardiovascular: Cardiovascular: Reports no additional cardiovascular complaints, Denies chest pain, Denies lightheadedness, Denies Loss of Consciousness and Denies dyspnea Respiratory: Respiratory: Reports no additional respiratory complaints and Denies dyspnea Gastrointestinal: Gastrointestinal: Reports no additional gastrointestinal complaints, Denies abdominal pain, Denies melena, Denies hematochezia, Denies change in bowel habits and Denies change in stool character Genitourinary: Genitourinary: Denies hematuria, Denies urinary frequency, Denies dysuria, Denies urinary incontinence, Denies urinary hesitancy and Denies urinary urgency Musculoskeletal: Musculoskeletal: Reports no additional musculoskeletal complaints, Denies numbness and Denies tingling Neurologic: Denies dizziness, Denies loss of vision, Denies numbness and Denies tingling Psychiatric: Psychiatric: Reports no additional psychiatric complaints Endocrine: Endocrine: Reports no additional endocrine complaints Hematologic/Lymphatic: Hematologic/Lymphatic: Reports no additional hematologic/lymphatic complaints Allergic/Immunologic: Allergic/Immunologic: Reports no additional allergic/immunologic complaints PMFSH Past Medical History Attestation statement: The following information was validated with the patient. Source: old records reviewed and nursing notes reviewed Medical History No pertinent past medical history Social History Social History Alcohol intake: never Patient Tobacco Use Status: Never used Tobacco Second Hand Smoke Exposure: No Advance Directives: No Advance Directives Information Provided: No service: No Physical Exam ED Vital Signs: Vital Signs - 24 hr 02/07/24 09:43 Temperature 98.2 F Pulse Rate 75 Respiratory Rate 16 Blood Pressure 145/82 H Pulse Oximetry 100 Oxygen Delivery Method Room Air BMI result Body Mass Index 29.6 Const General: cooperative, no acute distress, alert and awake Nutritional Appearance: well nourished Orientation/consciousness: patient oriented x3 Limitations: no limitations HENMT Head: Yes normal to inspection and Yes atraumatic Ears: hearing grossly normal bilaterally and external ears normal General nose exam: Normal external nose present, no nasal discharge noted and no epistaxis Face and sinus: Yes normal facial exam, No abrasion and No laceration Mouth: Normal oral and palatal mucosa present, no drooling and no muffled voice Teeth image: 1. crack present in tooth Eyes General: appearance normal, both eyes and all related structures Periorbital: periorbital findings normal Eyelids: Yes eyelids normal Conjunctivae: conjunctivae normal Pupils: Equal, round and reactive pupils present EOM: EOMs intact bilaterally Neck Neck: Yes normal visual inspection, Yes full ROM and Yes no lymphadenopathy Chest Chest palpation & inspection: normal inspection of the chest Resp Effort & Inspection: normal respiratory effort and able to speak in complete sentences GI Inspection: Yes normal to inspection Neuro General: patient oriented x3 and moves all extremities Cranial nerves: Yes Equal, round and reactive pupils present Cognition (Neuro): normal cognition Extrem General: Yes normal to inspection, Yes full ROM and Yes capillary refill normal Psych Appearance: grossly normal Mental Status: mental status grossly normal Affect: normal affect Attitude: cooperative Thought process: Normal thought process present Thought content: Normal thought content present Insight: Good insight present (Psych) Medical Decision Making Medical Decision Making [facility] Narrative: Patient is a 38 year old assigned female at with no reported medical history presenting to the emergency department today with right lower dental pain. Patient's physical exam showed a cracked #31 tooth. I explained my physical exam findings as well to the patient. I answered all questions asked by the patient. I stressed the importance of the patient taking her medication as directed (either prescribed or as the over the counter packaging recommends). I stressed the importance of the patient following up with her primary care provider and a dentist. I stressed the importance of the patient returning to the emergency department immediately if her symptoms were to worsen or if she were to develop any dizziness, shortness of breath, difficulty breathing, chest pain, blurry vision, loss of vision, nausea, vomiting, abdominal pain, fever, chills, back pain, or any other complaints. Patient verbalized agreement and understanding with this treatment plan and discharge. Differential Diagnosis Differential Diagnoses: The differential diagnosis associated with the presentation includes Dental pain Dental abscess Dental infection Broken tooth Admission/Observation Consideration of admission/observation: Escalation of care including admission/observation considered Patient would have been admitted to the hospital had her clinical presentation warranted hospital admission. Prescription Management I considered prescription management with: Pain Medication and Antibiotic (patient prescribed a prophylactic antibiotic to cover for dental infection) Discharge Plan Discharge Clinical Impression: Broken or cracked tooth, nontraumatic Patient Disposition: Home, Self-Care Instructions: Toothache (ED) Additional Instructions: Follow up with your primary care provider and a dentist. Return to the emergency department immediately if your symptoms worsen or if you develop any dizziness, shortness of breath, difficulty breathing, chest pain, blurry vision, loss of vision, nausea, vomiting, abdominal pain, fever, chills, back pain, or any other complaints. Call or visit any of the clinics below to establish with a dentist: [facility] [address] [place] [address] [facility] [address] [place] [address] [facility] [address] [facility], [address] [address] [place] [address] [facility] [address] [address] [facility] [address] [place] [address] [place] [address] [place] [address] Prescriptions: New penicillin V potassium 500 mg tablet 500 mg PO BID 10 Days Qty: 20 0RF naproxen 500 mg tablet 500 mg PO BID 7 Days Qty: 14 0RF chlorhexidine gluconate [Peridex] 0.12 % mouthwash 15 ml buccal BID Qty: 118 0RF No Action cefuroxime axetil 500 mg tablet 500 mg PO BID 8 Days Qty: 16 0RF ibuprofen 600 mg tablet 600 mg PO Q6H PRN (Reason: fever or pain) Qty: 30 0RF Referrals: [facility] [place] [facility] [place] Group] (Call to establish and follow up with a primary care provider. If you already have a primary care provider, please follow up with them.) [facility] [place] [facility] [Provider Group] [facility] [place] [facility] [Provider Group] Stand Alone Forms: Work/School Release Print Language: Estonian
[2024-02-07] MEDS: HYDROcodone Bit/Acetam 5/325 TABLET 1 TAB PO (10:15)
--- NOTE | 2024-02-07 10:20 | PC.NURSE ---
pt medicated per MAR for 10/10 R lower dental pain. verbalized understanding of need to follow up w dentist and take complete dose of abx.
[2024-02-07 10:21] VITALS: BP 145/82; PULSE 75; RESP 16; TEMP 36.8; O2SAT 100
== END 2024-02-07 10:21 | disposition home or self-care (01) ==
PROVIDERS: Emergency Provider Emergency Medicine
DX: K03.81 Cracked tooth (principal)
CPT/HCPCS: 99283

== ENCOUNTER 2024-04-24 12:55 | Emergency (ER) | payer OTHER, SELFPAY ==
--- NOTE | ~2024-04-24 | CT_ITS ---
EXAMINATION: CT MAXILLOFACIAL WITH CONTRAST CLINICAL INFORMATION: Dental abscess. COMPARISON: CT head from 04/04/2021. TECHNIQUE: Multidetector helical imaging of the maxillofacial bones was performed in the axial plane following the administration of 85 mL of Omnipaque 350 intravenous contrast. Generation of coronal and sagittal reformatted images. This CT examination was performed using dose optimization techniques as appropriate, variously including the following: *Automated exposure control *Adjustment of mA and/or kV according to patient size (this includes techniques or standardized protocols for targeted exams where dose is matched to indication/reason for exam; i.e. extremities or head) *Use of iterative reconstruction technique DLP: 417 mGy-cm FINDINGS: FRONTAL SINUSES AND DRAINAGE PATHWAYS: The frontal sinuses are clear. The frontoethmoidal recesses are patent. MAXILLARY SINUSES AND DRAINAGE PATHWAYS: Mild mucosal thickening of the maxillary sinuses. The maxillary ostia and infundibula are patent. ETHMOID SINUSES: Mild mucosal thickening of the ethmoid air cells. The ethmoid roofs appear symmetric and intact. SPHENOID SINUS AND DRAINAGE PATHWAYS: The sphenoid sinus is clear. The sphenoethmoidal recesses are patent. The carotid canals are normally covered by bone. NASAL PASSAGE: Mild mucosal thickening of the nasal passages. Mild leftward nasal septal deviation. The osseous nasal septum remains midline. ORBITS: Normal appearance of the osseous orbits. The lamina papyracea are intact. No significant preseptal or retrobulbar edema. Normal appearance of the globes. Normal symmetric appearance of the extraocular musculature. No abnormalities of the intraconal or extraconal adipose tissue. Normal appearance of the optic nerve sheaths. Normal appearance of the lacrimal glands. No orbital fluid collections. No abnormalities of the orbital apices. TEMPOROMANDIBULAR JOINTS: The temporomandibular joints remain well aligned. Normal appearance of the temporomandibular joints. ADDITIONAL RELEVANT FINDINGS: No evidence of maxillofacial bone fractures. The zygomatic arches remain intact. No nasal bone fracture. No evidence of mandibular or maxillary fracture. The visualized mastoid air cells and middle ear cavities remain well aerated. Limited evaluation of the intracranial structures without significant abnormalities. Multifocal odontogenic enamel erosions and periapical lucencies. Small peripherally enhancing collection along the outer table of the right alveolar process of the mandible adjacent to the mandibular right 1st molar, measuring 0.4 x 0.1 cm. Moderate fat stranding throughout the right side of face. No demonstrated additional drainable fluid collection. The premaxillary, retromaxillary, pterygopalatine fossa, temporal fossa, and parapharyngeal adipose tissue is maintained. No demonstrated soft tissue abnormalities within the intrinsic tissues of the tongue. CT/CT facial bones w IV con IMPRESSION: Multifocal odontogenic disease. Small peripherally enhancing collection along the outer table of the right alveolar process of the mandible adjacent to the mandibular right 1st molar. Moderate fat stranding throughout the right side of face. No demonstrated additional drainable fluid collection. Electronically signed by: Azar Harrison DO 04/24/2024 07:36 PM EDT
[2024-04-24 13:04] VITALS: BP 118/76; PULSE 86; O2SAT 100
[2024-04-24 13:11] VITALS: BP 141/85; PULSE 79; RESP 16; TEMP 37; O2SAT 100; BMI 29.2
--- NOTE | 2024-04-24 13:15 | ED_ITS ---
HPI - General Adult General Chief complaint: Dental/Oral Stated complaint: R SIDE FACE PAIN FROM MOLARS PER EMS Time Seen by Provider: 04/24/24 14:42 Source: patient, RN notes reviewed and old records reviewed Mode of arrival: ambulatory History of Present Illness ED Provider: Jacque Vo PA-C HPI narrative: 38-year-old female with past medical history of pyelonephritis, presenting to the ED complaining of right-sided molar pain and facial swelling since waking this morning. Reports chronically broken molar, was seen at dentist yesterday and started on antibiotics, amoxicillin, Tylenol and ibuprofen without relief. States woke up this morning with worsening symptoms. Denies fever, chills, inability to swallow, ear pain Related Data Previous Rx's ?Medication ?Instructions ?Recorded cefuroxime axetil 500 mg tablet 500 mg PO BID 8 days #16 tabs 01/11/24 ibuprofen 600 mg tablet 600 mg PO Q6H PRN fever or pain 01/12/24 #30 tabs chlorhexidine gluconate 0.12 % 15 ml buccal BID #118 mL 02/07/24 mouthwash (Peridex) naproxen 500 mg tablet 500 mg PO BID 7 days #14 tabs 02/07/24 penicillin V potassium 500 mg 500 mg PO BID 10 days #20 tabs 02/07/24 tablet Allergies Allergy/AdvReac Type Severity Reaction Status Date / Time No Known Allergies Allergy Verified 04/24/24 13:12 [No Known Allergies*] Review of Systems 2 Review of Systems: Yes all other systems are reviewed and are negative Constitutional: Constitutional: Reports as per [facility] Past Medical History Attestation statement: The following information was validated with the patient. Source: old records reviewed Medical History No pertinent past medical history Social History Social History Alcohol intake: never Patient Tobacco Use Status: Never used Tobacco Second Hand Smoke Exposure: No Advance Directives: No Advance Directives Information Provided: No service: No Physical Exam ED Vital Signs: Vital Signs - 24 hr 04/24/24 13:11 04/24/24 15:55 04/24/24 20:59 Temperature 98.6 F 97.7 F 97.4 F Pulse Rate 79 69 71 Respiratory Rate 16 16 16 Blood Pressure 141/85 H 127/69 135/74 Pulse Oximetry 100 99 100 Oxygen Delivery Method Room Air Room Air Room Air 04/24/24 21:06 Temperature 97.4 F Pulse Rate 71 Respiratory Rate 16 Blood Pressure 135/74 Pulse Oximetry 100 Oxygen Delivery Method Room Air BMI result Body Mass Index 29.2 Const General: cooperative, healthy appearing and no acute distress Orientation/consciousness: patient oriented x3 Limitations: no limitations HENMT Other: + right-sided lower facial swelling appreciated with tenderness. Right lower molar tenderness elicited. No appreciable fluctuance/induration or cellulitis. No trismus Head: Yes normal to inspection and Yes atraumatic Ears: hearing grossly normal bilaterally, external ears normal, TM's normal bilaterally and mastoids normal General nose exam: Normal external nose present Face and sinus: Yes normal facial exam Mouth: Normal oral and palatal mucosa present and no drooling Throat: Yes posterior oropharynx normal, Yes tonsils normal, Yes uvula midline, No peritonsillar mass, No uvula laterally displaced and No uvular edema Eyes General: appearance normal, both eyes and all related structures EOM: EOMs intact bilaterally Neck Neck: Yes normal visual inspection and Yes no meningeal signs Resp Effort & Inspection: normal respiratory effort and no respiratory distress Cardio Rate: regular rate Skin Rashes: no rashes Wounds: no wounds Neuro General: patient oriented x3, tone normal and no meningeal signs Cranial nerves: Yes CN's II-XII intact bilaterally Gait exam (Neuro): Normal gait present Extrem General: Yes normal to inspection Course Course Course Narrative: RME: Done by CHASITY Wilder. 38 yold female presents to the ED for right sided facial swelling that began this morning. Patient was seen yesterday for tooth infection and was placed on antibiotics. Patient states this morning waking up with right lower jaw/face swelling. Positive for right lower facial jaw swelling and tenderness on palpation. Positive for right lower molar tenderness on palpation. Negative for signs of trismus. -1503--no leukocytosis. H&H at patient's baseline. Labs otherwise reassuring -1900--ED care transferred to CHASITY Wells pending CT and dispo per results Reevaluation(s) Reevaluation #1: CT scan does not show any drainable abscess. CT scan just shows tooth infection. Negative for osteomyelitits. negative for necrotizing fasctitis. Patient explained worrisome signs and informed to return to the ED immediately. Patient also informed to follow up with dentist and primary care provider. Patient informed to continue taking her amoxicillin. Patient given copy of CT scan. Time: 20:54 Medications Administered Discontinued Medications Generic Name Dose Route Start Last Admin Trade Name Yessi PRN Reason Stop Dose Admin Acetaminophen 650 mg 04/24/24 17:22 04/24/24 18:16 Acetaminophen 325 Mg Tablet PO 04/24/24 17:23 650 mg ONCE ONE Administration Ketorolac Tromethamine 15 mg 04/24/24 14:54 04/24/24 15:37 Ketorolac Tromethamine 15 Mg/Ml Vial IVPUSH 04/24/24 14:55 15 mg ONCE ONE Administration Ondansetron HCl 4 mg 04/24/24 17:22 04/24/24 18:25 Ondansetron Odt 4 Mg Tab.Rapdis TRANSLINGU 04/24/24 17:23 4 mg ONCE ONE Administration Oxycodone HCl 5 mg 04/24/24 14:54 04/24/24 15:19 Oxycodone Hcl Immed Release 5 Mg Tablet PO 04/24/24 14:55 5 mg ONCE ONE Administration Medical Decision Making Medical Decision Making [facility] Narrative: 38-year-old female with past medical history of pyelonephritis, presenting to the ED complaining of right-sided molar pain and facial swelling since waking this morning. On exam vital signs stable, afebrile, NAD, nontoxic appearing, physical exam as noted above with right-sided facial swelling and tenderness and right lower molar tenderness. No appreciable fluctuance or induration or cellulitis. Difficult to examine secondary to pain. Posterior oropharynx WNL. Concern for dental abscess vs infection vs edema. 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 Patient has not yet failed outpatient treatment as has only been on antibiotic x1 day Plan: Labs ordered in triage, CT, pain control Please refer to course for remaining clinical decision making, interpretation of labs/imaging results, and discussions with consultants and/or family members. Differential Diagnosis Differential Diagnoses: The differential diagnosis associated with the presentation includes As above Admission/Observation Consideration of admission/observation: Escalation of care including admission/observation considered Lab Data [facility] Lab Attestation statement: I reviewed the patient's lab results. 04/24/24 13:38 04/24/24 13:38 Labs: Lab Results 04/24/24 Range/Units 13:38 WBC 9.7 (4.8-10.8) X10*3/uL RBC 3.25 L (4.20-5.50) X10*6/uL Hgb 10.8 L (12.0-16.0) g/dl Hct 31.2 L (37.0-47.0) % MCV 96.0 (80.0-98.0) fL MCH 33.2 H (27.0-33.0) pg MCHC 34.6 (31.0-35.0) g/dl RDW 12.7 (11.0-16.0) % Plt Count 187 D (160-400) X10*3/uL MPV 9.3 L (9.4-12.3) fL Immature Gran % (Auto) 0.5 H (0.0-0.4) % Neut % (Auto) 70.0 (45-73) % Lymph % (Auto) 17.5 L (20-40) % Sunflower % (Auto) 8.6 (2-11) % Eos % (Auto) 3.0 (0-4) % Baso % (Auto) 0.4 (0-2) % Lymph # (Auto) 1.7 (1.2-4.9) X10*3/uL Sunflower # (Auto) 0.8 (0.1-1.2) X10*3/uL Eos # (Auto) 0.3 (0.0-0.4) X10*3/uL Baso # (Auto) 0.0 (0.0-0.2) X10*3/uL Abs Immat Gran (auto) 0.05 H (0.00-0.03) X10*3/uL Absolute Neuts (auto) 6.8 (2.0-8.3) x10*3/uL Absolute Nucleated RBC 0.000 (0.0-0.012) X10*3/uL Nucleated RBC % (auto) 0.0 (0.0-0.2) /100WBC Sodium 142 (135-145) mmol/L Potassium 3.8 (3.3-5.1) mmol/L Chloride 110 H (96-108) mmol/L Carbon Dioxide 22 (22-29) mmol/L Anion Gap 14 (12-20) BUN 8 L (9-16) mg/dL Creatinine 1.26 (0.5-1.4) mg/dL Estim Creat Clear Calc 60.2 Estimated GFR 47 Random Glucose 98 (60-115) mg/dL Calcium 8.9 D (8.4-10.2) mg/dL Total Bilirubin 0.7 (0.0-1.0) mg/dL AST 18 (5-31) U/L ALT 22 (0-31) U/L Alkaline Phosphatase 60 (39-117) U/L Total Protein 7.6 (6.5-8.0) g/dL Albumin 4.4 (3.5-5.0) g/dL Beta HCG, Quant < 2 mIU/mL Independent Interpretation I performed an independent interpretation of an: CT Scan Radiology Impression Discussion of test interpretation with radiology: I have reviewed the radiologist's reading. Independent Historian Clinical information obtained from an independent historian. History obtained from or confirmed by: Friend External Record Review External record reviewed: Inpatient record, Office record, Outpatient record, Prior outpatient labs, Prior outpatient radiology, Primary care record and Outside ED record Tests considered The following testing was considered but not selected: As above Prescription Management I considered prescription management with: Pain Medication and Antibiotic Discharge Plan Discharge Clinical Impression: Dental abscess Patient Disposition: Home, Self-Care Instructions: Dental Abscess (ED) Additional Instructions: Continue taking your antibiotics prescribed by the dentist. Return to the ED immediately for worsening facial swelling, drooling, change in voice, chest pain, shortness of breath, neck swelling, or any other concerning symptoms. Prescriptions: No Action cefuroxime axetil 500 mg tablet 500 mg PO BID 8 Days Qty: 16 0RF ibuprofen 600 mg tablet 600 mg PO Q6H PRN (Reason: fever or pain) Qty: 30 0RF penicillin V potassium 500 mg tablet 500 mg PO BID 10 Days Qty: 20 0RF naproxen 500 mg tablet 500 mg PO BID 7 Days Qty: 14 0RF chlorhexidine gluconate [Peridex] 0.12 % mouthwash 15 ml buccal BID Qty: 118 0RF Referrals: Renny Dhillon [Dentist] - Ron Jerry DMD [Dentist] - Marvin Wiggins DMD [Dentist] - Brianna Hernandez DMD [Dentist] - Stand Alone Forms: Work/School Release Interventions: ED Discharge Assessment Last Done: 04/24/24 21:06 Discharge Date/Time: 04/24/24 21:08 Print Language: Ukrainian
[2024-04-24 13:44] LABS: MANUAL DIFF FLAG NO
[2024-04-24 13:49] LABS: Basophils Percent Auto 0.4 % (0-2); Eosinophils Absolute Auto 0.3 X10*3/uL (0.0-0.4); Hematocrit 31.2 % (37.0-47.0); Hemoglobin 10.8 g/dl (12.0-16.0); Imm Gran Abs Auto 0.05 X10*3/uL (0.00-0.03); Imm Gran Pct Auto 0.5 % (0.0-0.4); Lymphocytes Absolute Auto 1.7 X10*3/uL (1.2-4.9); Lymphocytes Percent Auto 17.5 % (20-40); Mean Corpuscular HGB Conc 34.6 g/dl (31.0-35.0); Mean Corpuscular Hemoglobin 33.2 pg (27.0-33.0); Mean Platelet Volume 9.3 fL (9.4-12.3); Monocytes Absolute Auto 0.8 X10*3/uL (0.1-1.2); Monocytes Percent Auto 8.6 % (2-11); Neutrophils Absolute Auto 6.8 x10*3/uL (2.0-8.3); Platelet Count 187 X10*3/uL (160-400); Red Blood Count 3.25 X10*6/uL (4.20-5.50); Red Cell Distribution Width 12.7 % (11.0-16.0); White Blood Count 9.7 X10*3/uL (4.8-10.8)
[2024-04-24 14:21] LABS: Alanine Aminotransferase 22 U/L (0-31); Albumin Level 4.4 g/dL (3.5-5.0); Alkaline Phosphatase 60 U/L (39-117); Anion Gap 14 (12-20); Aspartate Amino Transferase 18 U/L (5-31); Bilirubin Total 0.7 mg/dL (0.0-1.0); Blood Urea Nitrogen 8 mg/dL (9-16); Calcium 8.9 mg/dL (8.4-10.2); Carbon Dioxide 22 mmol/L (22-29); Chloride 110 mmol/L (96-108); Creatinine Clr Calc Pharmacy 60.2; Estimated Glomerular Filt Rate 47; Glucose Random 98 mg/dL (60-115); Potassium 3.8 mmol/L (3.3-5.1); Sodium 142 mmol/L (135-145); Total Protein 7.6 g/dL (6.5-8.0)
[2024-04-24 14:30] LABS: HCG Quantitative < 2 mIU/mL
[2024-04-24] MEDS: oxyCODONE HCl Immed Release 5 MG TABLET PO (15:19)
[2024-04-24] MEDS: Ketorolac Tromethamine 15 MG/ML VIAL IVPUSH (15:37)
[2024-04-24 15:55] VITALS: BP 127/69; PULSE 69; RESP 16; TEMP 36.5; O2SAT 99
[2024-04-24] MEDS: Acetaminophen 325 MG TABLET 650 MG PO (18:16)
[2024-04-24] MEDS: Ondansetron ODT 4 MG TAB.RAPDIS TRANSLINGU (18:25)
[2024-04-24 20:59] VITALS: BP 135/74; PULSE 71; RESP 16; TEMP 36.3; O2SAT 100
[2024-04-24 21:06] VITALS: BP 135/74; PULSE 71; RESP 16; TEMP 36.3; O2SAT 100
== END 2024-04-24 21:08 | disposition home or self-care (01) ==
PROVIDERS: Physician Assistant; Emergency Provider Emergency Medicine
DX: K04.7 Periapical abscess without sinus (principal); R51.9 Headache, unspecified
CPT/HCPCS: 36415; 70487; 80053; 84702; 85025; 96374; 99284; J1885